=== PATIENT | female | born 1990 | race Caucasian/White ===

== ENCOUNTER 2024-07-26 12:33 | Outpatient (CLI) | payer OTHER, SELFPAY ==
--- NOTE | ~2024-07-26 | US_ITS ---
EXAMINATION: US OB /maternal detail DATE: 07/26/2024 13:20 INDICATION: anatomic survey. TECHNIQUE: Real-time ultrasound of the pelvis was performed. COMPARISON: None. FINDINGS: There is a single living fetus in breech presentation. The placenta is anterior, 8.1 cm from the cer vix. The cervical length is 3.9 cm on transabdominal images, which is normal. heart rate is 142 beats per minute (bpm). The amniotic fluid volume is subjectively normal. The following biometric data were obtained: Biparietal diameter (BPD): 4.3 cm; head circumference (HC): 16.1 cm; abdominal circumference (AC): 13 .6 cm; femur length (FL): 3.0 cm. These measurements are concordant. Estimated weight is 275 g +/- 41 g, which correlates with the 9th percentile when 12/13/24 is us ed as estimated date of delivery. As single measurements, these parameters are each equal to the following estimated gestational ages: BPD: 19 weeks 0 days. HC: 18 weeks 6 days. AC: 19 weeks 0 days. FL: 19 weeks 2 days. estimated gestational age based solely on measurements from this exam is 19 weeks 0 days +/- 1 weeks 2 days. The cerebral ventricles, cerebellum, cisterna magna, nuchal fold, lip, and spine are normal. The hear t is normal. The diaphragm, stomach, kidneys, and bladder are normal. There are two umbilical arterie s to yield a 3-vessel cord. The cord insertion is normal. IMPRESSION: 1. Single living fetus in breech presentation. 2. Small for gestational age. Estimated weight is 275 g +/- 41 g, which correlates with the 9t h percentile when 12/13/24 is used as estimated date of delivery. 3. Normal anatomic survey. Reviewed, dictated and finalized at location A. TIME IMPRESSION: 1. Single living fetus in breech presentation. 2. Small for gestational age. Estimated weight is 275 g +/- 41 g, which correlates with the 9th percentile when 12/13/24 is used as estimated date of livery. 3. Normal anatomic survey.
== END 2024-07-26 12:34 | disposition home or self-care (01) ==
PROVIDERS: PCP Obstetrics & Gynecology Gynecology; Visit Provider Obstetrics & Gynecology Gynecology
DX: Z36.9 Encounter for antenatal screening, unspecified (principal)
CPT/HCPCS: 76805

== ENCOUNTER 2024-12-11 11:10 | Inpatient (IN) | payer OTHER, SELFPAY ==
[2024-12-11] VITALS (64 sets, daily range): BP systolic 92–157; BP diastolic 34–104; PULSE 66–237; RESP 16; TEMP 36.2–37.1; O2SAT 75–100; BMI 30.2
[2024-12-11 09:50] LABS: Basophils Percent Auto 0.2 % (0.2-1.2); Eosinophils Absolute Auto 0.2 K/mm3 (0-0.3); Eosinophils Percent Auto 1.8 % (0-4.4); Hematocrit 39.7 % (37.0-47.0); Hemoglobin 12.5 g/dL (12.0-15.0); Immature Granulocyte Absolute 0.04 K/mm3 (0.00-0.031); Immature Granulocyte Percent A 0.5 % (0-0.5); Lymphocytes Percent Auto 25.1 % (18.3-44.2); Mean Corpuscular HGB Conc 31.5 g/dl (32-36); Mean Corpuscular Volume 88.8 fl (80-100); Monocytes Absolute Auto 0.8 K/mm3 (0.1-0.6); Neutrophils Absolute Auto 5.2 K/mm3 (1.3-6.7); Neutrophils Percent Auto 62.4 % (45.5-73.1); Platelet Count Result 336 k/mm3 (150-375); Red Blood Count 4.47 M/mm3 (4.2-5.4); Red Cell Distribution Width 12.3 % (11.5-14.5); White Blood Count 8.4 K/mm3 (4.5-10.0)
[2024-12-11 09:55] LABS: Add Urine Microscopic? YES; Appearance Urine Clear (Clear); Bacteria Urine Rare /hpf; Bilirubin Urine Negative (Negative); Blood Urine Negative (Negative); Color Urine Yellow (Yellow); Glucose Urine UA Negative (Negative); Ketones Urine Negative (Negative); Leukocyte Esterase Ur 2+ LEU/UL (Negative); Nitrate Urine Negative (Negative); Non Pathogenic Casts 0-2; Protein Urine Trace mg/dL (Negative); RBC Urine 0-2 /hpf (0-2); Specific Grav Ur 1.005 (1.001-1.035); Squamous Epithelial Cell Urine Moderate /hpf (Few); Urobilinogen Urine 0.2 mg/dL (<2.0); pH Urine 7.5 (5.0-9.0)
[2024-12-11 09:58] LABS: Alanine Aminotransferase 16 U/L (6-35); Alkaline Phosphatase 247 U/L (38-126); Anion Gap 9 mmol/L (4-12); Aspartate Amino Transferase 23 U/L (14-36); Bilirubin,Total 0.4 mg/dL (0.2-1.3); Blood Urea Nitrogen 7 mg/dL (7-17); Calcium 9.2 mg/dL (8.4-10.2); Carbon Dioxide 21 mmol/L (22-30); Chloride 104 mmol/L (98-107); Estimated Glomerular Filt Rate > 60; Glucose 87 mg/dL (65-110); Potassium 4.2 mmol/L (3.4-5.0); Sodium 134 mmol/L (137-145)
--- OUTSIDE RECORDS SUMMARY | 2024-12-11 10:02 | XMS_ITS | Encounter Summary ---
Author Organization [facility] Address Formerly [facility] [place] [address] Care Team Providers Care Estimation Manager Name Role Phone Tanvi Hopkins MD Primary Care Provider [phone] Encounter Details Date Type Department Care Team (Latest Contact Info) Description 12/19/2023 [employer] Message Enc [facility] - [address] [address] [address] [address] [place] [address] Tanvi Hopkins MD [address] [place] [address] [address] [place] [address] New Test Result email - 12/13/23 Social History Tobacco Use Types Packs/Day Years Used Date Smoking Tobacco: Never Smokeless Tobacco: Never Comments:Counseled by Dr. Allison stroud. Alcohol Use Standard Drinks/Week Comments Yes 0 (1 standard drink = 0.6 oz pur e alcohol) Socially PHQ-2 Answer Date Recorded Patient Health Questionnaire-2 Score 0 08/12/2023 Comments No Sex and Gender Information Value Date Recorded Sex Assigned at Not on file Legal Sex Female 7:05 PM CDT Gender Identity Not on file Sexual Orientation Not on file documented as of this encounter Plan of Treatment Not on file documented as of this encounter Visit Diagnoses Not on filedocumented in this encounter Additional Health Concerns Assessment Noted Time PHQ-9 Depression Total Score: 1 08/12/20 9:24 AM GUILLOTINE TRIMMER documented as of this encounter Care Teams Estimation Manager Relationship Specialty Start Date End Date Tanvi Hopkins MD [facility] [address] PCP - General INTERNAL MEDICINE 08/12/23 documented as of this encounter
--- OUTSIDE RECORDS SUMMARY | 2024-12-11 10:02 | XMS_ITS | Encounter Summary ---
Author Organization [facility] Address [address] [place] [address] Care Team Providers Care Inbound Customer Service Representative Name Role Phone Tanvi Hopkins MD Primary Care Provider [phone] Encounter Details Date Type Department Care Team (Late st Contact Info) Description 01/23/2019 Abstract [facility] [address] [place] [address] Corrine Pastor DO [address] [place] [address] Social History Tobacco Use Types Packs/Day Years Used Date Smoking Tobacco: Never Assessed Comments Unknown Sex and Gender Information Value Date Recorded Sex Assigned at Not on file Legal Sex Female 7:05 PM CDT Gender Identity Not on file Sexual Orientation Not on file documented as of this encounter Progress Notes * Corrine Pastor DO - 01/23/2019 4:20 PM CDT Please correct the error in network technology instructor is a 3 eosinophils percentage. This is probably from an allergy. Otherwise the health fair is benign. documented in this encounter Plan of Treatment Not on file documented as of this encounter Procedures Procedure Name Priority Date/Time Associated Diagnosis Comments HEALTH FAIR WITH LIPID Routine 11/03/2018 documented in this encounter Results * HEALTH FAIR WITH LIPID (11/03/2018) WBC 6.6 RBC 5.0 HGB 14.4 HCT 44.3 MCV 88.8 MCH 28.9 MCHC 32.5 RDW 12.3 PLT 410 ABS. NEUTROPHILS 2.41 ABS. LYMPHOCYTES 3.00 ABS. MONOCYTES 0.64 ABS. EOSINOPHILS 0.55 ABS. BASOPHILS 0.02 ABS. IMMATURE CELLS 0.01 NEUTROPHILS % *36.3 LYMPHOCYTES % 45.2 MONOCYTES % 9.7 EOSINOPHILS % *803 BASOPHILS % 0.3 IMMATURE GRANS % 0.20 GLUCOSE 80 mg/dL SODIUM S/P/B 141 POTASSIUM S/P/B 4.0 CHLORIDE S/P/B 103 CO2 29 BUN 8 CREATININE S/P/B 1.0 0.5 - 1.0 TOTAL PROTEIN S/P/B 8.2 CALCIUM S/P/B 9.2 ALBUMIN S/P/B 3.9 3.5 - 5.0 ALKALINE PHOSPHATASE S/P/B 61 AST 23 ALT 18 TSH 2.779 CHOLESTEROL 197 TRIGLYCERIDES 69 HDL *57 LDL (CALCULATED) 126 CHOL/HDL RISK FACTOR 3 11/03/2018 us Doc [facility] LABORATORY Edited Resul t - Final documented in this encounter Visit Diagnoses Not on filedocumented in this encounter Care Teams Inbound Customer Service Representative Relationship Specialty Start Date End Date Tanvi Hopkins MD [facility] [address] [place] [id number] PCP - General INTERNAL MEDICINE 08/12/23 documented as of this encounter
--- OUTSIDE RECORDS SUMMARY | 2024-12-11 10:02 | XMS_ITS | Clinical Summary ---
Author Organization [facility] Address [address] [place] [id number] Care Team Providers Care Quality Control Assistant Name Role Phone Corrine Pastor DO Primary Care Provider [phone] Allergies Active Allergy Reactions Criticality Noted Date Comments Other Swelling Medium 05/25/2018 Kiwi Medications sertraline (ZOLOFT) 50 mg tablet 12/12/2020 Active Active Problems Problem Noted Date Diagnosed Date Episodic tension-type headache, not intractable 12/26/2020 Assessment & Plan (12/26/2020 10:07 AM CDT): Patient has history of muscle contraction type headaches and was seen last at [facility] in 2017. She had a recurrence of similar headache based on historical characterization that responded initially to amitriptyline and seems to be continuing to respond along with anti anxiety benefit with substitution of amitriptyline with sertraline. At this time she cites having very little headache. When she does have a headache and does not require any treatment. She describes as a bandlike generalized head pressure without light or noise sensitivity nausea or vomiting. She has a normal neurological examination at present. Recommendations at this point I would continue the sertraline as prescribed by her PCP. I will see her back in the office on an as-needed basis. Surgical History Surgery Date Site/Laterality Comments ORAL SURGERY Medical History Medical History Date Comments Anxiety Headache Family History Medical History Relation Name Comments drug overdose Brother Kidney disease Father Irregular heart beat Mother Relation Name Status Comments Brother Father Alive Mother Alive Social History Tobacco Use Types Packs/Day Years Used Date Smoking Tobacco: Never Smokeless Tobacco: Never Personal Safety Answer Date Recorded Getting School Help Needed Not on file 11/19 Comments Unknown Sex and Gender Information Value Date Recorded Sex Assigned at Not on file Legal Sex Female 5:49 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 Gender Identity Not on file Sexual Orientation Not on file Obstetrics History Last Filed Vital Signs Vital Sign Reading Time Taken Comments Blood Pressure 118/64 12/26/2020 9:18 AM CDT Pulse 122 12/26/2020 9:18 AM CDT Temperature 37.8 C (100 F) 12/26/2020 9:18 AM CDT Respiratory Rate - - Oxygen Saturation - - Inhaled Oxygen Concentration - - Weight 56.2 kg (124 lb) 12/26/2020 9:18 AM CDT Height 162.6 cm (5' 4 ) 12/26/2020 9:18 AM CDT Body Mass Index 21.28 12/26/2020 9:18 AM CDT Plan of Treatment Not on file Insurance [facility] CHOICE PL[facility] Care Teams Quality Control Assistant Relationship Specialty Start Date End Date Corrine Pastor DO [facility] [place] [address] [place] [id number] PCP - General Sports Medicine 11/10/20
--- OUTSIDE RECORDS SUMMARY | 2024-12-11 10:02 | XMS_ITS | Clinical Summary ---
Author Organization [facility] Address [address] [place] [address] Care Team Providers Care Sales Training Representative Name Role Phone Tanvi Hopkins MD Primary Care Provider [phone] Allergies Active Allergy Reactions Criticality Noted Date Comments Kiwi Fruit Swelling 05/25/2018 Medications No known medications Active Problems Problem Noted Date Diagnosed Date Episodic tension-type headache, not intractable 12/26/2020 Overview (08/21/2021): Last Assessment & Plan: Patient has history of muscle contraction type headaches and was seen last at [facility] in 2017. She had a recurrence [...] in the office on an as-needed basis. Migraine 11/21/2020 ELIZABETH (generalized anxiety disorder) 11/21/2020 Family history of cardiovascular disorder 2020 Family history of anemia 11/21/2020 Family history of hypothyroidism 11/21/2020 Other migraine without status migrainosus, not i ntractable 03/20/2019 Closed fracture of foot 07/05/2011 Overview (03/17/2019): Note: nondisplaced fracture of the R proximal 5th metatarsal metaphyseal. Date Onset: 06/21/2011 Resolved Problems Problem Noted Date Diagnosed Date Resolved Date Tachycardia, unspecified 11/21/202009/2021 Annual physical exam 03/20/2019 021 Immunizations Name Administration Dates Next Due [id number] (Pediarix) 03/25/1992,03/06,01/14/1992, 992,1991,1991 Dtap (Generic) 05/02/2006,04/15/1997 Dtp 05/02/2006,04/15/1997 Dtp (Generic) 05/02/2006,04/15/1997 HPV GARDASIL 9-VALENT 03/06/2009,09/13/2008 Hepatitis A 05/02/2006 Hepatitis A (Generic) 05/02/2006,05/02/2006 Hepatitis B 05/14/1993, 3,11/08/1992, 993,10/06/1992,10/06/1992 Hepatitis B (Generic: Adult) 05/14/1993,11/08/18 93,10/06/1992 Hib 05/14/1993 Hib (Generic) 05/14/1993,05/14/1993 Influenza (Generic) 07/27/2023, 9,06/20/2019, 013 Influenza Adult (Generic) 07/07/2021,,05/23/2020, 020,06/20/2019,07/01/2016,07/01/2016, MMR (Generic) 04/15/1997,05/14/1993 MODERNA COVID-19 BIVALENT (1 2+), MRNA, LNP-S, PF 06/29/2022 Tdap (Boostrix) 08/12/2023 Varicella/MMR (Proquad) 04/15/1997,05/14/1993 Family History Medical History Relation Comments Diabetes Father Hypertension Father Hypertension Mother Relation Status Comments Father Mother Social History Tobacco Use Types Packs/Day Years Used Date Smoking Tobacco: Never Smokeless Tobacco: Never Tobacco Cessation:Counseling Given: Yes Comments:Counseled by Dr. Hopkins. Alcohol Use Standard Drinks/Week Comments Yes 0 (1 standard drink = 0.6 oz pur e alcohol) Socially PHQ-2 Answer Date Recorded Patient Health Questionnaire-2 Score 0 08/12/2023 Comments No Sex and Gender Information Value Date Recorded Sex Assigned at Not on file Legal Sex Female 7:05 PM CDT Gender Identity Not on file Sexual Orientation Not on file Last Filed Vital Signs Vital Sign Reading Time Taken Comments Blood Pressure 137/82 08/12/2023 7:58 AM SALES ENGINEER Pulse 74 08/12/2023 7:58 AM SALES ENGINEER Temperature 36.3 C (97.3 F) 08/12/2023 7:58 AM SALES ENGINEER Respiratory Rate 14 08/12/2023 7:58 AM SALES ENGINEER Oxygen Saturation 100% 08/12/2023 7:58 AM SALES ENGINEER Inhaled Oxygen Concentration - - Weight 61.1 kg (134 lb 12.8 oz) 08/12/2023 7:58 AM SALES ENGINEER Height 162.6 cm (5' 4 ) 08/12/2023 7:58 AM SALES ENGINEER Body Mass Index 23.14 08/12/2023 7:58 AM SALES ENGINEER Plan of Treatment Health Maintenance Due Date Last Done Comments HPV Vaccines (3 - 3-dose series) 05/29/2009 03/06/2009, 09/13/2008 Cervical Cancer Screening Pap with HPV Testing (Age 30 to 64) Every 5 Years 2021 03/20/2019 Cervical Cancer Screening Pap Smear (Age 30 to 64) Every 3 Years 11/25/2023 11/24/2020, 11/21/2020, 03/20/2019 Cervical Cancer Screening with HPV 11/25/2023 COVID-19 Vaccine ( season) 2024 06/29/2022, 08/12/2021, 01/02/2021, Additional history exists Annual Physical 08/12/2024 08/12/2023, 11/03, 03/20/2019 PHQ-2 (Physician [place]) 09/05/2024 08/12/2023 DTaP, Tdap and Td Vaccines (9 - Td or Tdap) 08/12/2033 08/12/2023, 05/02/2006, 05/02/2006, Additional history exists Hepatitis B Vaccines Completed 05/14/1993, 05/14/1993, 05/14/1993, Additional history exists Hepatitis C Completed 09/30/2023 Meningococcal B Vaccine Aged Out No l onger eligible based on patient's age to complete this topic Meningococcal Vaccine Aged Out No maurizio quincy eligible based on patient's age to complete this topic Pneumococcal Vaccine: Pediatrics (0 to 5 Years) and At-Risk Patients (6 to 64 Years) Aged Out No longer eligible based on patient's age to complete this topic RSV Immunizations Under 20 Months Aged Out No longer eligible based on patient's age to complete this topic Procedures Procedure Name Priority Date/Time Associated Diagnosis Comments HEPATITIS C ANTIBODY W/RFX TO HCV RNA Routine 09/30/2023 9:30 AM SALES ENGINEER OUTSIDE CYTOPATH CERV/VAG INTERPRET (PAP) (SCAN ORDER) 11/24/2020 HPV MRNA E6/E7 Routine 03/20/2019 4:20 PM CDT from Last 3 Months or Most Recently Relevant to Health Maintenance Results * HEPATITIS C ANTIBODY W/RFX TO HCV RNA (09/30/2023 9:30 AM SALES ENGINEER) HEPATITIS C AB NON-REACT MARLEE NON-REACT MARLEE [facility] Comment: HCV antibody was non-reactive. There is no laboratory evidence of HCV infection. In most cases, no further action is required. However, if recent HCV exposure is suspected, a test for HCV RNA (test code 40157) is suggested. For additional information please refer to http://education.Bill Me Later.Usermind/faq/BOW41h6 (This link is being provided for informational/ educational purposes only.) 09/30/2023 9:30 AM SALES ENGINEER 09/30/2023 9:32 AM SALES ENGINEER Narrative [facility] - 10/01/2023 7:26 AM SALES ENGINEER FASTING:YES PATIENT UNABLE TO VOID; ADVISED TO RETURN FOR COLLECTION. FASTING: YES Resulting Agency Comment Performing Organization Information: Site ID: [id number] Name: Alan Babcock Address: [address] [address] Director: Albertina Gunn MD Tanvi Hopkins MD LABORATORY Final Result [facility] [place] [address] [address] [address], [place] * PAP SMEAR (SCAN ORDER) (11/24/2020) 11/24/2020 [facility] Scanned SCANNING Final Resu lt * HPV MRNA E6/E7 (03/20/2019 4:20 PM CDT) HPV MRNA E6/E7 Not Detected NOT DETECTED 03/24/2019 11:18 AM CDT [facility] Comment: This test was performed using the APTIMA(R) HPV Assay ([employer] This assay detects E6/E7 viral messenger RNA (mRNA) from 14 high-risk HPV types (16,18,31,33,35,39,45,51, 52,56,58,59,66,68). For additional information please refer to: http://education.Revver/faq/MQC784n9 (This link is being provided for informational/ educational purposes only.) The analytical performance characteristics of this assay have been determined by [employer] [place], [place]. The modifications have not been cleared or approved by the FDA. This assay has been validated pursuant to the CLIA regulations and is used for clinical purposes. Test Performed by [facility], [employer] [place], [address] [place] [address] Orlando Oates M.D., Ph.D., Director of Laboratories , CLIA [id number] 03/20/2019 4:20 PM CDT Corrine Pastor DO PATHOLOGY/CYTOLOGY ORDERABLES Fi nal Result [facility] [address] [place] [address], [place] [phone] from Last 3 Months or Most Recently Relevant to Health Maintenance Insurance [employer] Care Teams Sales Training Representative Relationship Specialty Start Date End Date Tanvi Hopkins MD [address] [facility] [address] [place] [address] PCP - General INTERNAL MEDICINE 08/12/23
--- OUTSIDE RECORDS SUMMARY | 2024-12-11 10:02 | XMS_ITS | Clinical Summary ---
Author Organization [facility] Address [address] [facility] [place] [address] Care Team Providers Care Computer Recycling Worker Name Role Phone Corrine Pastor DO Primary Care Provider [phone] Source Comments [facility],non-owned Affiliates and Associated Physician Practices is amultiple site organization consisting of ambulatory clinics and hospital sitesin [place], [place], [place] and [place]. This disclosure is being madepursuant to the Care Everywhere program and may not contain all information available regarding this patient. Last updated 05/26/18.[facility] Allergies No known active allergies Medications Be aware that medications may not be up to date on this document. Always verify current medications with the patient. No known medications Immunizations Name Administration Dates Next Due INFLUENZA VACCINE, QUADR. (F LUZONE; FLULAVAL; FLUARIX; AFLURIA QUADRIVALENT; 6MO+), 0.5 ML (IIV4) 05/23/2020 Social History Tobacco Use Types Packs/Day Years Used Date Smoking Tobacco: Never Smokeless Tobacco: Never Sex and Gender Information Value Date Recorded Sex Assigned at Not on file Gender Identity Not on file Sexual Orientation Not on file Last Filed Vital Signs Vital Sign Reading Time Taken Comments Blood Pressure 118/70 05/23/2020 10:29 AM CDT Pulse 77 05/23/2020 10:29 AM CDT Temperature 36.9 C (98.5 F) 05/23/2020 10:29 AM CDT Respiratory Rate 17 05/23/2020 10:29 AM CDT Oxygen Saturation 100% 05/23/2020 10:29 AM CDT Inhaled Oxygen Concentration - - Weight 59 kg (130 lb) 05/23/2020 10:29 AM CDT Height 162.6 cm (5' 4 ) 05/23/2020 10:29 AM CDT Body Mass Index 22.31 05/23/2020 10:29 AM CDT Plan of Treatment Health Maintenance Due Date Last Done Comments PAP SMEAR 1991 HIV SCREENING 2006 HEPATITIS C SCREENING 09/03/2009 DTAP/TDAP/TD VACCINES (1 - Tdap) 2010 HEPATITIS B VACCINE (1 of 3 - 19+ 3-dose series) 2010 COVID-19 VACCINE (1 - 2023-2 5 season) 2024 INFLUENZA VACCINE (#1) 2024 0, 06/20/2019 DEPRESSION SCREENING 09/05/2024 ZOSTER VACCINE (1 of 2) 2041 HIB VACCINE Aged Out No longer eligi ble based on patient's age to complete this topic HPV VACCINE Aged Out No longer eligi ble based on patient's age to complete this topic MENINGOCOCCAL (Group B) VACCINE SHARED DECISION-MAKING Aged Out No longer eligible based on patient's age to complete this topic MENINGOCOCCAL GROUPS A/C/Y/W VACCINE Aged Out No longer eligible b ased on patient's age to complete this topic PNEUMOCOCCAL VACCINE Aged Out No long er eligible based on patient's age to complete this topic Care Teams Computer Recycling Worker Relationship Specialty Start Date End Date Corrine Pastor DO PCP - General Family Medicine 05/23/20
--- OUTSIDE RECORDS SUMMARY | 2024-12-11 10:02 | XMS_ITS | Referral Summary ---
Author Organization [facility] Address [address] [place] [phone] Care Team Providers Care Lab Animal Technician Name Role Phone Corrine Pastor DO Primary Care Provider [phone] Allergies Active Allergy Reactions Criticality Noted Date Comments Other Swelling Medium 05/25/2018 Kiwi Medications sertraline (ZOLOFT) 50 mg tablet 12/12/2020 Active Active Problems Problem Noted Date Diagnosed Date Episodic tension-type headache, not intractable 12/26/2020 Assessment & Plan (12/26/2020 10:07 AM CDT): Patient has history of muscle contraction type headaches and was seen last at [facility] in 2017. She had a recurrence [...] in the office on an as-needed basis. 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
--- OUTSIDE RECORDS SUMMARY | 2024-12-11 10:02 | XMS_ITS | Encounter Summary ---
Author Organization [facility] Address [address] [place] [address] Care Team Providers Care Toe Trimmer Name Role Phone Tanvi Hopkins MD Primary Care Provider [phone] Encounter Details Date Type Department Care Team (Late st Contact Info) Description 11/28/2020 [employer] Message Enc [facility] [address] [place] [id number] Corrine Pastor DO [address] [place] [address] RE: Follow Up/Update Social History Tobacco Use Types Packs/Day Years Used Date Smoking Tobacco: Never Smokeless Tobacco: Never Alcohol Use Standard Drinks/Week Comments Yes 0 (1 standard drink = 0.6 oz pur e alcohol) Socially PHQ-2 Answer Date Recorded PHQ-2 Score - If the patient scores above 3, please move on to questions 3-9 0 11/21/2020 Comments No Sex and Gender Information Value Date Recorded Sex Assigned at Not on file Legal Sex Female 7:05 PM CDT Gender Identity Not on file Sexual Orientation Not on file COVID-19 Exposure Response Date Recorded In the last month, have you been in contact with someone who was confirmed or suspected to have Coronavirus / COVID-19? No / Unsure 11/21/2020 10:09 AM CDT documented as of this encounter Progress Notes * Corrine Pastor DO - 12/01/2020 4:48 PM CDT If you want I can change it to Lexapro 10 mg. I am not certain what that side effect is from either. * Corrine Pastor DO - 11/28/2020 2:25 PM CDT Lets try through the weekend. Report on Tuesday. Stop if worse. * Corrine Pastor DO - 11/28/2020 12:45 PM CDT im not sure. Would you like to try another choice? I chose this one due to low doses and unknown chances documented in this encounter Plan of Treatment Not on file documented as of this encounter Visit Diagnoses Not on filedocumented in this encounter Care Teams Toe Trimmer Relationship Specialty Start Date End Date Tanvi Hopkins MD [facility] [address] [address] PCP - General INTERNAL MEDICINE 08/12/23 documented as of this encounter
--- OUTSIDE RECORDS SUMMARY | 2024-12-11 10:02 | XMS_ITS | Data Portability ---
Author Organization [facility] Address [address] [place] [address] Care Team Providers Care Cook Helper Preserves Name Role Phone TERRELLRONELJULIOANNIKAAlmaz Primary Care Provider Assessment Encounter Date Assessment Date Assessment LastModified by Organization Details LastModified Time 11/16/2024 11/16/2024 Patient is _36__weeks . Discussed plan. [email or web address] Not available 11/16/2024 11:56:08 11/23/2024 11/23/2024 Patient is _37__weeks . Discussed plan. Not available 11/23/2024 10:58:33 11/30/2024 11/30/2024 Patient is _38__weeks . Discussed plan. [email or web address] Not available 11/30/2024 10:09:02 12/07/2024 12/07/2024 Patient is __39_weeks . Discussed plan. [email or web address] Not available 12/07/2024 10:37:53 12/11/2024 12/11/2024 Patient is _39__weeks . Discussed plan. [email or web address] Not available 12/11/2024 10:04:11 Plan of Treatment Reminders Order Date Submit Date Provider Last Modified By Organization Details Last Modified Time Details Appointments OB ROUTINE 2024 08:30A M Haleigh Garland CNM Not available Not available Not available Lab None recorded . Referral None recorded . Procedures None recorded . Surgeries None recorded . Imaging None recorded . Medication Orders None recorded . Patient TargetsNo targets recorded. Patient InstructionsNo instructions recorded. Reason for Referral None Reported. Results Created Date Observation Date Name Description Value Unit Range Abnormal Flag Note LastModifiedBy Organization Detail LastModifiedTime 11/17/19 25 11/16/2024 CULTU RE: GROUP B STREP SCREE N, REFLE X SUSCE PTIBI LITY result report SEE RESULT S BELOW Test: Cultu re: Group B Strep , Refle x Susce ptibi lity ([facility]/ [facility] ) Speci men Sourc e: Vagin a/Rec joaquín Speci men Type: Vagin al/Re ctal Speci men Date: 2024 1436 Resul t Date: 2024 1445 Resul t Statu s: Final resul t Abnor mal: No Resul ting Lab: [facility] [address] [facility] [address] Tel: CULTU RE ----- ----- ----- --- No Group B strep isola nawaf at 2 days (angelica ctive broth enhan cemen t) Not Available [facility] (Lab) [address], [place], [address], 11/19/2024 15:49:07 11/02/19 25 11/02/2024 non-s tress test No observ ation record ed. [email or web address] [id number] , [place], [address], 11/02/2024 18:12:45 11/02/19 25 11/02/2024 non-s tress test No observ ation record ed. [email or web address] [address], [place], [address], 11/02/2024 18:17:24 Result Notes None recorded. Problems Name Problem SNOMED Code Status Onset Date Resolution Date Notes Provider Name and Address Organization Details Recorded Time 61103971 Active 2024 Marly Disla [facility], [facility] 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 5 11:33:54 Anxiety 61110932 Active given rx for lexapro and hydroxyzin e by nelson ZEPEDA, has not filled yet Haleigh Garland CNM [address], [place], [address], [facility] 5 11:33:05 Problem Notes None recorded. Procedures Surgical History Date Name Laterality Status Provider Name and Address Organization Details Recorded Time 4 Colposcopy completed Marly Disla [facility] 10/07/2024 14:16:22 4 Date of Last Pap Smear completed Marly Disla [facility] 10/07/2024 14:15:10 Imaging Results Imaging Date Name Status LastModified by Organiz ation Details LastModified Time 11/02/2024 non-stress test completed [place], [place], [address], 11/02/2024 18:12:45 11/02/2024 non-stress test completed [address] [place] [address], [place], [address], 11/02/2024 18:17:24 Procedure Notes None recorded. Medical Equipment None Reported. Allergies Allergen ID Allergen Name Allergen Category Reaction Reaction Severity Criticality Documentation Date Start Date Code Code System Note Provider Name and Address Organization Details Recorded Time 99282 kiwi fruit extract food Not available Not available Not available 09/20/2024 06706 01 RxNorm Marly roman, [facility] 5 10:07:59 Medications Name Sig Start Date Stop Date Status Note LastModified by Organization Details LastModified Time ergocalcifer ol (vitamin D2) 1,250 mcg (50,000 unit) capsule TAKE 1 CAPSULE BY MOUTH ONCE A WEEK 09/20 completed Not Available Not Available Not Available Vitals Date Recorded Body weight Body mass index (BMI) Body height Systolic blood pressure Diastolic blood pressure Provider Name and Address Organization Details Last Updated DateTime 11/16/2024 44926.88 764 g 29.5 kg/m2 162.56 cm 136 mm[Hg] 72 mm[Hg] Haleigh Garland, DUNAE [address], [place], [address], [facility] 10:32:04 Date Recorded Body height Body mass index (BMI) Body weight Systolic blood pressure Diastolic blood pressure Provider Name and Address Organization Details Last Updated DateTime 11/23/2024 162.56 cm 29.9 kg/m2 44955.07 g 135 mm[Hg] 83 mm[Hg] Marly Disla [facility] 10:14:25 Date Recorded Body height Body mass index (BMI) Body weight Systolic blood pressure Diastolic blood pressure Provider Name and Address Organization Details Last Updated DateTime 11/30/2024 162.56 cm 30.6 kg/m2 85450.44 g 138 mm[Hg] 86 mm[Hg] Marly Disla [facility] 10:08:22 Date Recorded Body height Body mass index (BMI) Body weight Systolic blood pressure Diastolic blood pressure Provider Name and Address Organization Details Last Updated DateTime 12/07/2024 162.56 cm 30.6 kg/m2 88977.44 g 138 mm[Hg] 86 mm[Hg] Marly Disla [facility] 10:12:25 Date Recorded Body height Body mass index (BMI) Body weight Systolic blood pressure Diastolic blood pressure Provider Name and Address Organization Details Last Updated DateTime 12/11/2024 162.56 cm 30 kg/m2 29503.66 g 159 mm[Hg] 94 mm[Hg] Marly Disla [facility] 09:45:50 Social History Question Answer Notes LastModified by Organizat ion Details LastModified Time Tobacco Smoking Status Never Smoker Marly Disla [facility], [facility] 09/20/2024 10:18:50 Do You Have An Advance Directive? No [email or web address] Information n ot available 10/05/2024 What Is Your Level Of Alcohol Consumption? None [email or web address] Information not available 09/20/2024 If You Are , What Was Your Level Of Alcohol Consumption Prior To ? Occasional Information not available 09/20/2024 Are You Blind Or Do You Have Difficulty Seeing? No [email or web address] Information n ot available 09/20/2024 What Is Your Level Of Caffeine Consumption? Moderate [email or web address] Information not available 09/20/2024 How Much Tobacco Do You Chew? None [email or web address] Information not available 10/05/2024 In The 14 Days Before Symptom Onset, Have You Had Close Contact With A Laboratory-confirm ed COVID-19 While That Case Was Ill? No [email or web address] Information n ot available 09/20/2024 In The 14 Days Before Symptom Onset, Have You Had Close Contact With A Person Who Is Under Investigation For COVID-19 While That Person Was Ill? No [email or web address] Information not available 09/20/2024 Have You Been To An Area Known To Be High Risk For COVID-19? No [email or web address] Information not available 09/20/2024 Are You Deaf Or Do You Have Serious Difficulty Hearing? No [email or web address] Information not available 09/20/2024 What Type Of Diet Are You Following? REGULAR [email or web address] Information n ot available 09/20/2024 What Is The Highest Grade Or Level Of School You Have Completed Or The Highest Degree You Have Received? WL24251-0 [email or web address] Information not available 10/05/2024 What Is Your Occupation? Development [email or web address] Information not available 10/05/2024 Do You Use Protection During Sex? No [email or web address] Information not available 10/05/2024 Do You Use Your Seat Belt Or Car Seat Routinely? Yes [email or web address] Information not available 09/20/2024 Do You Have Smoke And Carbon Monoxide Detectors In Your Home? Yes [email or web address] Information not available 09/20/2024 How Much Tobacco Do You Smoke? No [email or web address] Information not available 10/05/2024 Do You Feel Stressed (tense, Restless, Nervous, Or Anxious, Or Unable To Sleep At Night)? CD76164-1 Information not available 09/20/2024 Do You Use Any Illicit Or Recreational Drugs? No [email or web address] Information not available 09/20/2024 Do You Use Sunscreen Routinely? Yes [email or web address] Information not available 09/20/2024 Has Tobacco Cessation Counseling Been Provided? No [email or web address] Information not available 09/20/2024 Have You Used IV Drugs? No Information not available 10/05/2024 Do You Or Have You Ever Used Any Other Forms Of Tobacco Or Nicotine? No [email or web address] Information not available 09/20/2024 Sex: Unknown Functional Status Question Answer Note LastModified by Organizat ion Details LastModified Time Do you have difficulty walking or climbing stairs? No [email or web address] Information not available 09/20/2024 Are you able to walk? YESWOREST [email or web address] Information not available 09/20/2024 Are you able to care for yourself? Yes [email or web address] Information not available 09/20/2024 Do you have difficulty dressing or bathing? No [email or web address] Information not available 09/20/2024 What is your exercise level? Moderate [email or web address] Information not available 09/20/2024 Mental Status None recorded. Family History Relationship Description Onset Age of this Age Resolved Age Notes LastModified by Organization Details LastModified Time Father Diabetes mellitus [email or web address] Not available 09/20 09:26:30 Father Coronary arterioscler osis [email or web address] Not available 2024 10:29:26 Father Anemia Not available 10/07/2024 14:09:42 Father Heart disease [email or web address] Not available 10/07 14:09:56 Mother Diabetes mellitus [email or web address] Not available 09/20 09:26:30 Mother Coronary arterioscler osis Not available 2024 10:29:26 Mother Hypertensive disorder [email or web address] Not available 01/16 /2025 09:26:55 Mother Anemia [email or web address] Not available 10/07/2024 14:09:42 Medical History Condition Response Allergies (Food, seasonal, environmental ) N Other N Breast Cancer N Drug/Latex Allergies/Reactions N Blood Transfusion N Dermatologic Disorders N Lung Disease N Defects or Inherited Disease N Breast Problem N Gestational Diabetes N Hematologic disorders N Anesthesia Complications N History of STI N Deep Vein Thrombosis N Polycystic ovary syndrome N Anxiety Disorder Y Autoimmune disease N Arthritis N Infertility N Polyps N Acid Reflux (GERD) N History of abnormal pap N Cancer N Stroke N Varicosities N Neurologic/Epilepsy N Endometriosis N High Cholesterol N Headaches N Fibromyalgia N Kidney Disease N Heart Problems N Kidney or Bladder Problems N Thyroid Problems N GI Problems N Eating Disorder N Anemia N Art (IVF or FET) N Psychiatric Illness N Ovarian Cancer N Diabetes N Pulmonary (TB, Asthma) N Hepatitis/Liver Disease N No Past Medical History N Eczema N Urinary Tract Infection N Abuse/Domestic Violence N Asthma N Trauma/Violence N Depression/ depression N Heart Disease N Pre-Eclampsia N Hypertension N Osteoporosis N Thrombophilias N Gynecological History Statement/Question Response Date of Last Colonoscopy Date of Last Mammogram Date of LMP 03/08/2024 Date of DEXA bone scan Colposcopy Date of Last Pap Smear 11/30/2023 Current Control Method LMP Definite Obstetrics History GPAL:G 1 P 0 0 0 0 Type Value Living 0 Total 1 Past Encounters Encounter ID Performer Location Encounter Start Date Encounter Closed Date Diagnosis/Indication Diagnosis SNOMED-CT Code Diagnosis ICD10 Code Diagnosis Note [id number] Marly Disla [facility] [address],[facility] [place] [address] 09/20/2024 09:18:07 09/20/2024 11:51:20 Gestation period, 28 weeks 00835048 Z3A.28 Venereal d isease screening 703996853 Z11.3 Routine an tenatal care 401832289 Z34.93 [id number] Haleigh Garland [facility] [address],[facility] [place] [address] 10/05/2024 10:29:05 10/05/2024 12:54:36 Gestation period, 30 weeks 68177761 Z3A.30 [id number] [facility] [address],[place] [address] 10/19/2024 09:55:43 10/19/2024 10:43:26 Gestation period, 32 weeks 3857695 Z3A.32 [id number] Haleigh Garland [facility] [address],[place] [address] 11/02/2024 09:58:39 11/02/2024 10:53:24 Gestation period, 34 weeks 49600415 Z3A.34 [id number] Marly Nighat [facility] [address],[place] [address] 11/02/2024 18:09:57 11/05/2024 01:39:31 tachycardia 738952071 O36.8399 [id number] Haleigh Garland [facility] [address],[place] [address] 11/16/2024 10:02:54 11/16/2024 11:57:35 Gestation period, 36 weeks 81495600 Z3A.36 [id number] [facility] [address],[place] [address] 11/23/2024 10:06:05 11/23/2024 11:03:06 Gestation period, 37 weeks 78168537 Z3A.37 [id number] [facility] [address],[place] [address] 11/30/2024 10:01:14 11/30/2024 10:24:08 Gestation period, 38 weeks 35259063 Z3A.38 [id number] [facility] [address],[place] [address] 12/07/2024 10:03:56 12/07/2024 10:46:51 Gestation period, 39 weeks 74251264 Z3A.39 [id number] [facility] [address],[place] [address] 12/11/2024 09:36:39 12/11/2024 10:27:31 Gestation period, 39 weeks 83093272 Z3A.39 Health Concerns Section Related Observation LastModified by Organization Detai ls LastModified Time None Recorded Concern Status LastModified by Organization Details LastModified Time None Recorded Advance Directives Directive N: Payers Encounter Date Sequence Insurance Name Policy Number Policy Danielle Covered Member ID Danielle Member ID Guarantor Name 11/16/2024 1 [employer] (POS) [id number] Jennifer Koehl [id number] 19 Jennifer Koehl 11/23/2024 1 [employer] (POS) [id number] Jennifer Koehl [id number] 19 Jennifer Koehl 11/30/2024 1 [employer] (POS) [id number] Jennifer Koehl [id number] 19 Jennifer Koehl 12/07/2024 1 [employer] (POS) [id number] Jennifer Koehl [id number] 19 Jennifer Koehl 12/11/2024 1 [employer] (POS) [id number] Jennifer Koehl [id number] 19 Jennifer Koehl OBGyn Episode Ob Episode Information Episode Created Date Number of Fetuses Patient Bloodtype Patient rh Status Prepregnancy Weight lbs Domestic Partner Domestic Partner Phone Father Name Newspaper Peddler Status 09/20/19 25 1 B Positive 127 ratna allen OPEN Fetus Data First Name Last Name Admitted to NICU Weight (g) Sex Living Outcome Pediatric Complications Fetus ID Race Codes Race Delivery Type [id number] Problems Problem Notes ok to do to gCT with juice, discussed not as diagnostic as glucola, pt to bring it in, declines h/h, hivprefers low intervention, wants to keep placenta Problem Name Start Date End Date Resolution Snomed Code Not e Anxiety 44115982 given rx f or lexapro and hydroxyzine by nelson ZEPDEA, has not filled yet growth restriction 37220808 has f/u chet jensen, us offered here sooner6% efw Be Calculation Initial Be Date Initial Exam Date Initial Exam Provider Initial Ultrasound Date Last Menstrual Period Date Ultra Sound Weeks Gestation 12/13/2024 05/31/2024 05/31/202403/08/2024 12 Eighteen To Twenty Week Be Update Ultra Sound Date Fundal Height At Umbil Quickening Date Ultra Sound Latest Weeks Gestation Final Be Confirmed By Final Be Confirmed Date Final Be Date Ultra Sound Latest Days Gestation 07/26/20 24 19 [email or web address] 09/20/2024 12/14/19 25 0 Pre-chacho Flowsheet Flowsheet Date 09/20/2024 Raza Score Blood Edema Fundus Height Fundus Units Glucose Ketones Leukocytes Nitrite Labor Signs Protein Cervic Dilation Cervic Effacement Cervic Station neg none 24 cm none trace Type Weight in lbs Pre/Post Dialysis Refused Weight 157.928747151633 BP Diastolic BP Location Tested BP Systolic BP Type 77 133 Fetus Heart Rate Present A 160 Present Fetus Movement A Yes Comments reviewed pt history, IUGR, h asnt seen [facility] in awhile, does have f/u, declines hiv and other labs for now, pt to do gct, discussed anxiety in , risks and benefits of lexapro and hydroxyzine, pt unsure if she wants to fill. prefers low intervention Flowsheet Date 10/05/2024 Raza Score Blood Edema Fundus Height Fundus Units Glucose Ketones Leukocytes Nitrite Labor Signs Protein Cervic Dilation Cervic Effacement Cervic Station none Type Weight in lbs Pre/Post Dialysis Refused 161.666956935360 BP Diastolic BP Location Tested BP Systolic BP Type 73 130 Fetus Heart Rate Present Fetus Movement A Yes Comments Patient is having some disch arge. 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 has appt at [facility] today for us, reviewed kick counts f/u 2 weeks Flowsheet Date 10/19/2024 Raza Score Blood Edema Fundus Height Fundus Units Glucose Ketones Leukocytes Nitrite Labor Signs Protein Cervic Dilation Cervic Effacement Cervic Station neg none Type Weight in lbs Pre/Post Dialysis Refused 163.127747355534 BP Diastolic BP Location Tested BP Systolic BP Type 75 137 Fetus Heart Rate Present Fetus Movement A Yes Comments Patient is having groin pain and discharge. discussed 36 week US, pt to consider, is checking with insurance, +FM sleeping ok, ice to groin avoid lifting, precautions and education f/u 2 weeks call for preadmission, discussed classes Flowsheet Date 11/02/2024 Raza Score Blood Edema Fundus Height Fundus Units Glucose Ketones Leukocytes Nitrite Labor Signs Protein Cervic Dilation Cervic Effacement Cervic Station neg none 33 cm Type Weight in lbs Pre/Post Dialysis Refused 167.208878438479 BP Diastolic BP Location Tested BP Systolic BP Type 82 135 Fetus Heart Rate Present A 168 Present Fetus Movement A Yes Comments Pstient states that is havin g some discharge. will reviewed evidence based , discussed gbs plan culture next visit, +FM, precautions and education f/u 2 weeks Flowsheet Date 11/02/2024 Raza Score Blood Edema Fundus Height Fundus Units Glucose Ketones Leukocytes Nitrite Labor Signs Protein Cervic Dilation Cervic Effacement Cervic Station Type Weight in lbs Pre/Post Dialysis Refused Weight 167.770314672334 BP Diastolic BP Location Tested BP Systolic BP Type 82 135 Fetus Heart Rate Present Fetus Movement Comments Flowsheet Date 11/16/2024 Raza Score Blood Edema Fundus Height Fundus Units Glucose Ketones Leukocytes Nitrite Labor Signs Protein Cervic Dilation Cervic Effacement Cervic Station none Type Weight in lbs Pre/Post Dialysis Refused 172.504445329645 BP Diastolic BP Location Tested BP Systolic BP Type 72 136 Fetus Heart Rate Present Fetus Movement A Yes Comments patient is having cramping a nd discharge and swelling. +FM, doing well, precautions and education, gbs collected f/u one week Flowsheet Date 11/23/2024 Raza Score Blood Edema Fundus Height Fundus Units Glucose Ketones Leukocytes Nitrite Labor Signs Protein Cervic Dilation Cervic Effacement Cervic Station trace 36 cm Type Weight in lbs Pre/Post Dialysis Refused Weight 174.128548922098 BP Diastolic BP Location Tested BP Systolic BP Type 83 135 Fetus Heart Rate Present A 145 Present Fetus Movement A Yes Comments +FM, doing well, no complain ts, education and precautions, preadmission complete f/u one week Flowsheet Date 11/30/2024 Raza Score Blood Edema Fundus Height Fundus Units Glucose Ketones Leukocytes Nitrite Labor Signs Protein Cervic Dilation Cervic Effacement Cervic Station neg trace Type Weight in lbs Pre/Post Dialysis Refused Weight 178.298042348692 BP Diastolic BP Location Tested BP Systolic BP Type 86 138 Fetus Heart Rate Present A 158 Present Fetus Movement A Yes Comments Patient is having discharge and swelling. +FM doing well, precautions and education, declines cervical exam, f/u one week Flowsheet Date 12/07/2024 Raza Score Blood Edema Fundus Height Fundus Units Glucose Ketones Leukocytes Nitrite Labor Signs Protein Cervic Dilation Cervic Effacement Cervic Station neg trace Type Weight in lbs Pre/Post Dialysis Refused Weight 178.300472752790 BP Diastolic BP Location Tested BP Systolic BP Type 86 138 Fetus Heart Rate Present Fetus Movement A Yes Comments Patient is having discharge and swelling. declines elective IOL, +FM precautions and education f/u one week Flowsheet Date 12/11/2024 Raza Score Blood Edema Fundus Height Fundus Units Glucose Ketones Leukocytes Nitrite Labor Signs Protein Cervic Dilation Cervic Effacement Cervic Station neg trace Type Weight in lbs Pre/Post Dialysis Refused Weight 175.076645680347 BP Diastolic BP Location Tested BP Systolic BP Type 94 159 Fetus Heart Rate Present Fetus Movement A Yes Comments Patient is having some disch arge and swelling. Patient is having alot of stress and anxiety. pt father is at the end of life, +FM, denies headache visual changes, epigastric pain, to ld for labs Menstrual History Last Menstrual Date Menses Monthly On Bcp Conception Prior Menses Frequency Hcg Plus Date Menarche Onset Age 0703/08/2023 Delivery Information Delivery Date Delivery Type Labor Anesthesia Weeks Gestation Incision Type Labor Labor Length Hrs Delivered By Post Complications Tubal Sterilization Discharge Date Comments Discharge Information Feeding Method Contraceptive Method Maternal HG B and HCT Levels
--- OUTSIDE RECORDS SUMMARY | 2024-12-11 10:03 | XMS_ITS | Continuity of Care Document ---
Author Organization [facility] Address [address] [place] [address] Care Team Providers Care Mobile Health Vehicle Operator Name Role Phone DIANDRA BLEVINS Primary Care Provider [phone] Assessment Encounter Date Assessment Date Assessment LastModified by Organization Details LastModified Time 12/11/2024 12/11/2024 Patient is _39__weeks . Discussed plan. Not available 12/11/2024 10:04:11 Plan of Treatment [...] Abnormal Flag Note LastModifiedBy Organization Detail LastModifiedTime 11/02/1911/02/2024 non-s tress test No observ ation record ed. [email or web address] [place] [address], [place], [address], 11/02/2024 18:12:45 11/02/1911/02/2024 non-s tress test No observ ation record ed. [email or web address] [place] [address], [place], [address], 11/02/2024 18:17:24 Result Notes None recorded. Problems Name Problem SNOMED Code Status Onset Date Resolution Date Notes Provider Name and Address Organization Details Recorded Time 43963740 [facility] 10:[facility]32 growth restricti on 17067854 Active has f/u [facility], offered here sooner 6% efw Haleigh Garland CNM [address], [place], [address], [facility] 5 11:33:54 Anxiety 58845106 Active given rx for lexapro and hydroxyzin e by nelson ZEPEDA, has not filled yet Haleigh Garland CNM [address], [place], [address], [facility] 5 11:33:05 Problem Notes None recorded. Procedures Surgical History Date Name Laterality Status Provider Name and Address Organization Details Recorded Time 4 Colposcopy completed Marly Disla [facility] 10/07/2024 14:16:22 4 Date of Last Pap Smear completed Marly Disla [facility] 10/07/2024 14:15:10 Imaging Results None recorded. Procedure Notes None recorded. Medical Equipment None Reported. Allergies Allergen ID Allergen Name Allergen Category Reaction Reaction Severity Criticality Documentation Date Start Date Code Code System Note Provider Name and Address Organization Details Recorded Time 34943 kiwi fruit extract food Not available Not available Not available 09/20/2024 74837 01 RxNorm Marly roman, [facility] 5 10:07:59 Medications Name Sig Start Date Stop Date Status Note LastModified by Organization Details LastModified Time ergocalcifer ol (vitamin D2) 1,250 mcg (50,000 unit) capsule TAKE 1 CAPSULE BY MOUTH ONCE A WEEK 09/20 completed Not Available Not Available Not Available Vitals Date Recorded Body height Body mass index (BMI) Body weight Systolic blood pressure Diastolic blood pressure Provider Name and Address Organization Details Last Updated DateTime 12/11/2024 162.56 cm 30 kg/m2 57523.66 g 159 mm[Hg] 94 mm[Hg] Marly Disla [facility] 09:45:50 Social History Question Answer Notes LastModified by Organizat ion Details LastModified Time Tobacco Smoking Status Never Smoker Marly Disla null, [facility] 09/20/2024 10:18:50 Do You Have An Advance Directive? No Information n ot available 10/05/2024 What Is Your Level Of Alcohol Consumption? None [email or web address] Information not available 09/20/2024 If You Are , What Was Your Level Of Alcohol Consumption Prior To ? Occasional [email or web address] Information not available 09/20/2024 Are You Blind Or Do You Have Difficulty Seeing? No Information n ot available 09/20/2024 What Is Your Level Of Caffeine Consumption? Moderate [email or web address] Information not available 09/20/2024 How Much Tobacco Do You Chew? None [email or web address] Information not available 10/05/2024 In The 14 Days Before Symptom Onset, Have You Had Close Contact With A Laboratory-confirm ed COVID-19 While That Case Was Ill? No [email or web address] Information n ot available 09/20/2024 In The 14 Days Before Symptom Onset, Have You Had Close Contact With A Person Who Is Under Investigation For COVID-19 While That Person Was Ill? No [email or web address] Information not available 09/20/2024 Have You Been To An Area Known To Be High Risk For COVID-19? No [email or web address] Information not available 09/20/2024 Are You Deaf Or Do You Have Serious Difficulty Hearing? No [email or web address] Information not available 09/20/2024 What Type Of Diet Are You Following? REGULAR [email or web address] Information n ot available 09/20/2024 What Is The Highest Grade Or Level Of School You Have Completed Or The Highest Degree You Have Received? 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 No [email or web address] Information not available 10/05/2024 Do You Use Your Seat Belt Or Car Seat Routinely? Yes [email or web address] Information not available 09/20/2024 Do You Have Smoke And Carbon Monoxide Detectors In Your Home? Yes [email or web address] Information not available 09/20/2024 How Much Tobacco Do You Smoke? No [email or web address] Information not available 10/05/2024 Do You Feel Stressed (tense, Restless, Nervous, Or Anxious, Or Unable To Sleep At Night)? [id number] [email or web address] Information not available 09/20/2024 Do You Use Any Illicit Or Recreational Drugs? No [email or web address] Information not available 09/20/2024 Do You Use Sunscreen Routinely? Yes [email or web address] Information not available 09/20/2024 Has Tobacco Cessation Counseling Been Provided? No [email or web address] Information not available 09/20/2024 Have You Used IV Drugs? No Information not available 10/05/2024 Do You Or Have You Ever Used Any Other Forms Of Tobacco Or Nicotine? No [email or web address] Information not available 09/20/2024 Sex: Unknown Functional Status Question Answer Note LastModified by Organizat ion Details LastModified Time Do you have difficulty walking or climbing stairs? No [email or web address] Information not available 09/20/2024 Are you able to walk? YESWOREST [email or web address] Information not available 09/20/2024 Are you able to care for yourself? Yes [email or web address] Information not available 09/20/2024 Do you have difficulty dressing or bathing? No [email or web address] Information not available 09/20/2024 What is your exercise level? Moderate Information not available 09/20/2024 Mental Status None recorded. Family History Relationship Description Onset Age of this Age Resolved Age Notes LastModified by Organization Details LastModified Time Father Diabetes mellitus [email or web address] Not available 09/20 09:26:30 Father Coronary arterioscler osis [email or web address] Not available 2024 10:29:26 Father Anemia [email or web address] Not available 10/07/2024 14:09:42 Father Heart disease [email or web address] Not available 10/07 14:09:56 Mother Diabetes mellitus [email or web address] Not available 09/20 09:26:30 Mother Coronary arterioscler osis [email or web address] Not available 2024 10:29:26 Mother Hypertensive disorder [email or web address] Not available 09/20 09:26:55 Mother Anemia [email or web address] Not available 10/07/2024 14:09:42 Medical History Condition [...] SNOMED-CT Code Diagnosis ICD10 Code Diagnosis Note [id number] Haleigh Garland CNM [place] [address],[facility] [place] [address] 11/16/2024 10:02:54 11/16/2024 11:57:35 Gestation period, 36 weeks 39037279 Z3A.36 [id number] Haleigh Garland CNM [place] [address] [address] 11/23/2024 10:06:05 11/23/2024 11:03:06 Gestation period, 37 weeks 50954856 Z3A.37 [id number] Haleigh Garland CNM [place] [address],[place] [address] 11/30/2024 10:01:14 11/30/2024 10:24:08 Gestation period, 38 weeks 32142152 Z3A.38 [id number] Haleigh Garland CNM [place] [address],[place] [address] 12/07/2024 10:03:56 12/07/2024 10:46:51 Gestation period, 39 weeks 92355798 Z3A.39 [id number] Haleigh Garland CNM [place] [address],[place] [address] 12/11/2024 09:36:39 12/11/2024 10:27:31 Gestation period, 39 weeks 56003541 Z3A.39 Health Concerns Section Related Observation LastModified by Organization Detai ls LastModified Time None Recorded Concern Status LastModified by Organization Details LastModified Time None Recorded Payers Encounter Date Sequence Insurance Name Policy Number Policy Danielle Covered Member ID Danielle Member ID Guarantor Name 12/11/2024 1 [employer] (POS) [id number] Jennifer Croft [id number] Jennifer Croft OBGyn Episode Ob Episode Information Episode Created Date Number of Fetuses Patient Bloodtype Patient rh Status Prepregnancy Weight lbs Domestic Partner Domestic Partner Phone Father Name Narrow Fabric Calenderer Status 09/20/19 25 1 B Positive 127 ratna allen OPEN Fetus Data First Name Last Name Admitted to NICU Weight (g) Sex Living Outcome Pediatric Complications Fetus ID Race Codes Race Delivery Type [id number] Problems Problem Notes ok to do to gCT with juice, discussed not as diagnostic as glucola, pt to bring it in, declines h/h, hivprefers low intervention, wants to keep placenta Problem Name Start Date End Date Resolution Snomed Code Not e Anxiety [id number] given rx f or lexapro and hydroxyzine by nelson ZEPEDA, has not filled yet growth restriction 51755412 [facility]6% efw Be Calculation Initial Be Date Initial Exam Date Initial Exam Provider Initial Ultrasound Date Last Menstrual Period Date Ultra Sound Weeks Gestation 12/13/2024 05/31/2024 05/31/2024 03/08/2024 12 Eighteen To Twenty Week Be Update Ultra Sound Date Fundal Height At Umbil Quickening Date Ultra Sound Latest Weeks Gestation Final Be Confirmed By Final Be Confirmed Date Final Be Date Ultra Sound Latest Days Gestation 07/26/20 24 19 [email or web address] 09/20/2024 12/14/19 25 0 Pre- Flowsheet Flowsheet Date 09/20/2024 Raza Score Blood Edema Fundus Height Fundus Units Glucose Ketones Leukocytes Nitrite Labor Signs Protein Cervic Dilation Cervic Effacement Cervic Station neg none 24 cm none trace Type Weight in lbs Pre/Post Dialysis Refused Weight 157.947604832178 BP Diastolic BP Location Tested BP Systolic BP Type 77 133 Fetus Heart Rate Present A 160 Present Fetus Movement A Yes Comments reviewed pt history, IUGR, h asnt seen chet in awhile, does have f/u, declines hiv [...] Type Weight in lbs Pre/Post Dialysis Refused 161.990205839267 BP Diastolic BP Location Tested BP Systolic BP Type 73 130 Fetus Heart Rate Present Fetus Movement A Yes Comments Patient is having some disch arge. 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 has appt at [facility] today for us, reviewed kick counts f/u 2 weeks Flowsheet Date 10/19/2024 Raza Score Blood Edema Fundus Height Fundus Units Glucose Ketones Leukocytes Nitrite Labor Signs Protein Cervic Dilation Cervic Effacement Cervic Station neg none Type Weight in lbs Pre/Post Dialysis Refused 163.974345311264 BP Diastolic BP Location Tested BP Systolic BP Type 75 137 Fetus Heart Rate Present Fetus Movement A Yes Comments Patient is having groin pain and discharge. discussed 36 week US, pt to consider, is checking with insurance, +FM sleeping ok, ice to groin avoid lifting, precautions and education f/u 2 weeks call for preadmission, discussed classes Flowsheet Date 11/02/2024 Rzaa Score Blood Edema Fundus Height Fundus Units Glucose Ketones Leukocytes Nitrite Labor Signs Protein Cervic Dilation Cervic Effacement Cervic Station neg none 33 cm Type Weight in lbs Pre/Post Dialysis Refused 167.778687941912 BP Diastolic BP Location Tested BP Systolic [...] Weight in lbs Pre/Post Dialysis Refused Weight 167.523673960674 BP Diastolic BP Location Tested BP Systolic BP Type 82 135 Fetus Heart Rate Present Fetus Movement Comments Flowsheet Date 11/16/2024 Raza Score Blood Edema Fundus Height Fundus Units Glucose Ketones Leukocytes Nitrite Labor Signs Protein Cervic Dilation Cervic Effacement Cervic Station none Type Weight in lbs Pre/Post Dialysis Refused 172.110875926646 BP Diastolic BP Location Tested BP Systolic [...] Weight in lbs Pre/Post Dialysis Refused Weight 174.028124049318 BP Diastolic BP Location Tested BP Systolic [...] Weight in lbs Pre/Post Dialysis Refused Weight 178.030745296255 BP Diastolic BP Location Tested BP Systolic [...] Weight in lbs Pre/Post Dialysis Refused Weight 178.798819246087 BP Diastolic BP Location Tested BP Systolic [...] Weight in lbs Pre/Post Dialysis Refused Weight 175.745808381784 BP Diastolic BP Location Tested BP Systolic [...]
--- OUTSIDE RECORDS SUMMARY | 2024-12-11 10:03 | XMS_ITS | Clinical Summary ---
Author Organization [facility] Address [address] [place] [address] Phone Care Team Providers Care Manager Science Name Role Phone Unavailable Primary Care Provider Unavailabl e Active Problems Problem Noted Date Diagnosed Date growth restriction antepartum 08/22/2024 Estimated Date of Delivery Comme nts Yes 12/23/2024 Encounters Date Type Department Care Team Description 11/21/2024 External Device Data STL ABSTRACTION Provider, Abstract 11/21/2024 External Device Data [facility] ABSTRACTION Provider, Abstract 11/10/2024 External Device Data [facility] ABSTRACTION Provider, Abstract 11/10/2024 External Device Data [facility] ABSTRACTION Provider, Abstract 11/07/2024 External Device Data [facility] ABSTRACTION Provider, Abstract 10/24/2024 External Device Data [facility] ABSTRACTION Provider, Abstract 10/05/2024 3:30 PM CASH CHECKER - 10/05/2024 11:59 PM CASH CHECKER Hospital Encounter [facility] Ground Floor [address] [phone] Willy Esquivel MD Discharge Disposition: Home or Self Care 10/03/2024 External Device Data STL ABSTRACTION Provider, Abstract 09/27/2024 External Device Data [facility] ABSTRACTION Provider, Abstract from Last 3 Months Social History Tobacco Use Types Packs/Day Years Used Date Smoking Tobacco: Never Assessed Estimated Date of Delivery Comme nts Yes 12/23/2024 Sex and Gender Information Value Date Recorded Sex Assigned at Not on file Legal Sex Female 7:41 AM CASH CHECKER Gender Identity Not on file Sexual Orientation Not on file Last Filed Vital Signs Vital Sign Reading Time Taken Comments Blood Pressure 131/54 08/22/2024 11:07 AM CASH CHECKER BP M: 73 Pulse - - Temperature - - Respiratory Rate - - Oxygen Saturation - - Inhaled Oxygen Concentration - - Weight 66.7 kg (147 lb) 08/22/2024 11:07 AM CASH CHECKER Height 162.6 cm (5' 4 ) 08/22/2024 11:07 AM CASH CHECKER Body Mass Index 25.23 08/22/2024 11:07 AM CASH CHECKER Plan of Treatment Health Maintenance Due Date Last Done Comments HPV VACCINES (3 - 3-dose series) 05/29/2009 03/06/20 09, 09/13/2008 HPV/Cotest (21-29) 2012 PAP SMEAR 2012 CERVICAL CANCER SCREENING 2021 HPV/Cotest (30-65) 2021 PAP SMEAR 2021 INFLUENZA VACCINE (#1) 2024 05/23/2020 DTAP/TDAP/TD VACCINES (8 - T d or Tdap) 08/12/2033 08/12/2023, 05/02/2006, 05/02/2006, Additional history exists HEPATITIS B VACCINES Completed 05/14/1993, 05/14/1993, 11/08/1992, Additional history exists RSV VACCINE (60+ or ) (No Doses Required) Completed Procedures Procedure Name Priority Date/Time Associated Diagnosis Comments US OB FOLLOW UP + UMB ART Routine 10/05/2024 4:36 PM CASH CHECKER IUGR (intrauterine growth restriction) affecting care of mother, third trimester, fetus 1 from Last 3 Months Results * US OB FOLLOW UP + UMB ART (10/05/2024 4:36 PM CASH CHECKER) Anatomical Region Laterality Modality Pelvis Ultrasound 10/05/2024 3:40 PM CASH CHECKER Narrative 10/05/2024 4:54 PM CASH CHECKER STL FOLLOW UP ----- Pat. Name: JENNIFER CROFT Study Date: 10/05/2024 3:40pm Pat. NO: [id number] Referring MD: RAHAT MOORE MD Site: [facility] [employer] Back Liner: Haleigh AmayaHudson SORENSEN : 1990 Age: 34 ----- INDICATION ----- Screening for IUGR Anatomy Survey CODING ----- Diagnoses Z3A.30: Weeks of gestation Z36.3: Encounter for screening for malformations Z36.4: Encounter for screening for growth retardation Procedures 82912: Ultrasound, uterus, real time with image documentation, follow up, transabdominal approach per fetus 90170: Doppler velocimetry, ; umbilical artery MATERNAL ASSESSMENT ----- Physical Exam Weight 67 kg. BMI 26.89 kg/m METHOD ----- Transabdominal ultrasound examination, Transabdominal ultrasound examination. View: Good view ----- Rico . Number of fetuses: 1 DATING ----- LMP on: 03/08/2024 GA by LMP 30 w + 1 d DELANEY by LMP: 12/13/2024 GA by prior assessment 30 w + 1 d DELANEY by prior assessment: 12/13/2024 Ultrasound examination on: 10/05/2024 GA by U/S based upon: AC, BPD, EFW, Femur, HC GA by U/S 29 w + 0 d DELANEY by U/S: 12/21/2024 Method of dating: Restore dating from previous exam Assigned: based on the LMP, selected on 08/22/2024 Assigned GA 30 w + 1 d Assigned DELANEY: 12/13/2024 BIOMETRY ----- BPD 72.1 mm 29w 0d 9% Hadlock OFD 94.5 mm 30w 4d 60% Aishwarya HC 266.5 mm 29w 0d 3% Hadlock AC 251.5 mm 29w 2d 23% Hadlock Femur 55.4 mm 29w 1d 13% Hadlock Humerus 51.1 mm 29w 6d 47% Aishwarya HC / AC 1.06 38% Nicolaides Weight Calculation: EFW 1,359 g 28w 6d 14% Hadlock EFW (lb,oz) 3 lb 0 oz EFW by Hadlock ([id number]) Extremities / Bony Struc Biometry: FL / BPD 0.77 FL / HC 0.21 FL / AC 0.22 GENERAL EVALUATION ----- Cardiac activity present. FHR 151 bpm. movements: visualized, present. Presentation: cephalic Placenta: anterior Umbilical cord: Cord vessels: 3 vessel cord. Insertion site: placental insertion: normal Amniotic fluid: Amount of AF: normal amount. MVP 5.1 cm. OSCAR 17.9 cm. Q1 5.1 cm, Q2 4.7 cm, Q3 4.3 cm, Q4 3.8 cm DOPPLER ----- Umbilical Artery: PI 1.17 86% Enoch RI 0.71 83% Enoch PS 46.87 cm/s 57% Ebbing ED 14.20 cm/s TAmax 28.28 cm/s 37% Ebbing MD 13.39 cm/s S / D 3.56 83% Enoch HR 157 bpm ANATOMY ----- The following structures appear normal: Head / Neck Cranium. Lateral ventricles. Choroid plexus. Midline falx. Cavum septi pellucidi. Cerebellum. Cisterna magna. Heart / Thorax 4-chamber view. RVOT view. LVOT view. Diaphragm. Abdomen Stomach. Kidneys. Bladder. GROWTH OVERVIEW ----- Exam date GA BPD (mm) HC (mm) AC (mm) FL (mm) HL (mm) EFW (g) 08/22/2024 23w 6d 53.7 5% 200.6 1% 177.7 11% 39.7 11% 37.6 20% 523 6% 10/05/2024 30w 1d 72.1 9% 266.5 3% 251.5 23% 55.4 13% 51.1 47% 1,359 14% COMMENT ----- Patient's name and date of were verified by the cast iron drain pipe layer prior to the exam IMPRESSION ----- Rico viable intrauterine at 30w 1d. Estimated weight is 1359 g (14%ile), with abdominal circumference at 23%ile, which is not consistent with growth restriction. Amniotic fluid volume is normal amount (amniotic fluid index = 17.9 cm, maximum vertical pocket = 5.1 cm) Umbilical artery indices are wnl. Recommend Repeat growth in 2 weeks (2 weeks) with primary OB. If normal, repeat in 4 (36 weeks) weeks. Thank you for inviting us to participate in your patient's care Procedure Note Lisa Moscoso MD - 10/05/2024 STL FOLLOW UP ----- Pat. Name:Huber CROFT Date:10/05/2024 3:40pm Pat. NO: [id number] MD:RAHAT MOORE [facility]Haleigh Gonzalez RDMS :1990Age:34 ----- INDICATION ----- Screening for IUGR Anatomy Survey CODING ----- Diagnoses Z3A.30: Weeks of gestation Z36.3: Encounter for screening formalformations Z36.4: Encounter for screening for fetalgrowth retardation Procedures 47579: Ultrasound, uterus, real time withimage documentation, follow up, transabdominal approach per fetus 31315: Doppler velocimetry, ; umbilicalartery MATERNAL ASSESSMENT ----- Physical Exam Weight 67 kg. BMI 26.89 kg/m METHOD ----- Transabdominal ultrasound examination, Transabdominal ultrasoundexamination. View: Good view ----- Rico . Number of fetuses: 1 DATING ----- LMP on:03/08/2024 GA by [email or web address] w + 1 d DELANEY by LMP:12/13/2024 GA by prior [email or web address] w + 1 d DELANEY by prior assessment:12/13/2024 Ultrasound examination on:10/05/2024 GA by U/S based upon:AC, BPD, EFW, Femur, HC GA by U/S29 w + 0 d DELANEY by U/S:12/21/2024 Method of dating:Restore dating from previous exam Assigned:based on the LMP, selected on 08/22/2024 Assigned GA30 w + 1 d Assigned DELANEY:12/13/2024 BIOMETRY ----- BPD 72.1 mm 29w 0d9% Hadlock OFD 94.5 mm 30w 4d60% Aishwarya HC 266.5 mm 29w 0d3% Hadlock AC 251.5 mm 29w 2d23% Hadlock Femur 55.4 mm 29w 1d13% Hadlock Humerus 51.1 mm 29w 6d47% Aishwarya HC / AC 1.06 38%Nicolaides Weight Calculation: EFW 1,359 g 28w 6d14% Hadlock EFW (lb,oz) 3 lb 0 oz EFW by Hadlock ([id number]) Extremities / Bony Struc Biometry: FL / BPD 0.77 FL / HC 0.21 FL / AC 0.22 GENERAL EVALUATION ----- Cardiac activity present. FHR 151 bpm. movements: visualized,present. Presentation: cephalic Placenta: anterior Umbilical cord: Cord vessels: 3 vessel cord. Insertion site: placentalinsertion: normal Amniotic fluid: Amount of AF: normal amount. MVP 5.1 cm. OSCAR 17.9 cm. Q15.1 cm, Q2 4.7 cm, Q3 4.3 cm, Q4 3.8 cm DOPPLER ----- Umbilical Artery: PI 1.17 86%Enoch RI 0.71 83%Enoch PS 46.87 cm/s 57%Ebbing ED 14.20 cm/s TAmax 28.28 cm/s 37%Ebbing MD 13.39 cm/s S / D 3.56 83%Enoch HR 157 bpm ANATOMY ----- The following structures appear normal: Head / Neck Cranium. Lateral ventricles. Choroid plexus.Midline falx. Cavum septi pellucidi. Cerebellum. Cisterna magna. Heart / Thorax 4-chamber view. RVOT view. LVOT view. Diaphragm. Abdomen Stomach. Kidneys. Bladder. GROWTH OVERVIEW ----- Exam date GA BPD (mm) HC (mm) AC (mm) FL(mm) HL (mm) EFW (g) 08/22/2024 23w 6d 53.7 5% 200.6 1% 177.7 11% 39.711% 37.6 20% 523 6% 10/05/2024 30w 1d 72.1 9% 266.5 3% 251.5 23% 55.413% 51.1 47% 1,359 14% COMMENT ----- Patient's name and date of were verified by the cast iron drain pipe layer prior tothe exam IMPRESSION ----- Rico viable intrauterine at 30w 1d. Estimated weight is 1359 g (14%ile), with abdominal circumference at23%ile, which is not consistent with growth restriction. Amniotic fluid volume is normal amount (amniotic fluid index = 17.9 cm,maximum vertical pocket = 5.1 cm) Umbilical artery indices are wnl. Recommend Repeat growth in 2 weeks (2 weeks) with primary OB. If normal,repeat in 4 (36 weeks) weeks. Thank you for inviting us to participate in your patient's care us Willy Esquivel MD US ORDERABLES Final Re sult from Last 3 Months Insurance [employer] CHOICE POS II
[2024-12-11 10:22] LABS: Creatinine Urine 30.6 mg/dL; Total Protein Urine Random 32 mg/dL; Ur Ttl Prot Creatinine Ratio 1.05 mg/mg (0-0.20)
--- NOTE | 2024-12-11 10:27 | PC.NURSE ---
Christopher Garland updated with lab results. CNM to come over and speak with the pt to inform her that she will be staying for induction.
--- NOTE | 2024-12-11 10:39 | PC.NURSE ---
Christopher Garland at the bedside discussing POC with the pt. CNM explained risk vs benefits of induction.CNM answered all questions.
--- NOTE | 2024-12-11 12:18 | LDADM ---
This patient, Jennifer Croft, was admitted to Labor/Delivery/Recovery 109 on 12/11/24 at 11:10. Plans for labor, pain management and were discussed with patient. Patient/family oriented to hospital policies and general routines including ID bracelet, bed and alarms, visiting hours, pain management, procedures, bathroom and other care routines, personal items, smoking policy, room service/diet and guest tray routines, security routines, and visiting hours. Patient/Family are encouraged to report perceived risks to care and to ask questions if they do not understand what they are told or what they should do. See OBIX for further documentation.
--- NOTE | 2024-12-11 12:26 | PM.IMHP ---
H&P: HPI History of Present Illness Date/Time: 12/11/24 12:26 Chief Complaint: pt is a 34 y.o. at 39.5 weeks here for IOL due to preeclampsia without severe features. Pt denies headache, visual changes, epigastric pain. complicated by anxiety, no current medications and hx of resolved IUGR Review of Systems Review of Systems: All systems reviewed & are unremarkable except as noted in HPI and below PMFSH Family History Family History (Updated 11/16/24 @ 13:27 by Cathleen Conrad RN) Other Addiction Congestive heart failure Diabetes mellitus Social History Social History Substance use: never Spiritual care concerns: No Meds Home Medications and Allergies Home Medications ?Medication ?Instructions ?Recorded ?Confirmed ?Type calcium 300 mg-D3 25 mcg-magnesium tablet PO DAILY 12/11/24 History 66 mg-K2 37.5 mcg-herbal tablet (Alive Calcium-Vitamin D3-K2) cyanocobalamin (vitamin B-12) 500 500 mcg PO DAILY 12/11/24 12/11/24 History mcg tablet (B-12 DOTS) docosahexaenoic acid 200 mg mg PO DAILY 12/11/24 History capsule (Algal [place]-3 DHA) magnesium glycinate 100 mg (as 100 mg PO DAILY 12/11/24 12/11/24 History glycinate) tablet mv-min [id number] PO DAILY 12/11/24 History Allergies Allergy/AdvReac Type Severity Reaction Status Date / Time kiwi Allergy Intermediate Swelling Verified 12/11/24 12:06 Vital Signs Vital Signs - 24 hr 12/11/24 09:45 12/11/24 10:00 12/11/24 10:15 Pulse Rate 75 75 76 Blood Pressure 142/86 H 137/78 148/75 H Blood Pressure [Right Arm] 12/11/24 10:16 12/11/24 10:30 12/11/24 10:45 Pulse Rate 75 91 104 H Blood Pressure 141/76 H 157/93 H Blood Pressure [Right Arm] 137/78 Exam Narrative: preeclampsia without severe features, co-managed with Dr. Soria anticipate vaginal delivery FHR category 1 Const: General: cooperative, healthy appearing and comfortable Resp: Effort & Inspection: normal respiratory effort Auscultation: clear to auscultation bilaterally Cardio: Rate: regular rate Rhythm: regular rhythm GI: Other: gravid/soft Back/Spine/Pelvis: Back: no CVA tenderness Skin: General skin exam: normal color, no rashes or lesions noted and elasticity normal Neuro: General: patient oriented x3, gait normal, tone normal and moves all extremities H&P: Results Labs Labs: Short CBC 12/11/24 Range/Units 09:30 WBC 8.4 (4.5-10.0) K/mm3 Hgb 12.5 (12.0-15.0) g/dL Hct 39.7 (37.0-47.0) % Plt Count 336 (150-375) k/mm3 BMP 12/11/24 09:30 Sodium 134 L Potassium 4.2 Chloride 104 Carbon Dioxide 21 L BUN 7 Creatinine 0.76 Glucose 87 Calcium 9.2 Liver Function 12/11/24 Range/Units 09:30 Total Bilirubin 0.4 (0.2-1.3) mg/dL AST 23 (14-36) U/L ALT 16 (6-35) U/L Alkaline Phosphatase 247 H (38-126) U/L Albumin 4.0 (3.5-5.1) g/dL Urine 12/11/24 Range/Units 09:30 Urine Color Yellow (Yellow) Urine Appearance Clear (Clear) Urine pH 7.5 (5.0-9.0) Ur Specific [place] 1.005 (1.001-1.035) Urine Protein Trace (Negative) mg/dL Urine Glucose (UA) Negative (Negative) mg/dL
--- NOTE | 2024-12-11 13:05 | PC.NURSE ---
received verbal order for low dose Pitocin to be given and increased in increments of 2 milliunits per hour
[2024-12-11 13:14] LABS: HIV 1/2 Ab P24 Ag Result Negative (Negative)
[2024-12-11 13:22] LABS: Syphilis IgG/IgM Antibody Negative (Negative)
[2024-12-11] MEDS: OXYTOCIN 30 UNITS/NS 500 ML 30 UNITS/500 ML BAG 6 UNITS IV CONT (14:01)
[2024-12-11] MEDS: LACTATED RINGERS 1,000 ML 125 ML IV CONT (14:04)
--- NOTE | 2024-12-11 16:52 | WPDANESEPPF ---
Anes - Initial Pre Proc Eval Procedure: Labor Epidural Date/Time: 12/11/24 16:52 Surgeon: Iron Soria MD Pre Op Diagnosis: Induction of Labor Patient Data Age: 34 Gender: F Height: 1.63 m Weight: 80 kg Last Vital Signs Temp 37.1 C 12/11/24 15:25 Pulse 86 12/11/24 16:15 BP 127/76 12/11/24 16:15 O2 Del Method Room Air 12/11/24 12:18 Allergies Allergy/AdvReac Type Severity Reaction Status Date / Time kiwi Allergy Intermediate Swelling Verified 12/11/24 12:06 Home Medications ?Medication ?Instructions ?Recorded ?Confirmed ?Type calcium 300 mg-D3 25 mcg-magnesium tablet PO DAILY 12/11/24 History 66 mg-K2 37.5 mcg-herbal tablet (Alive Calcium-Vitamin D3-K2) cyanocobalamin (vitamin B-12) 500 500 mcg PO DAILY 12/11/24 12/11/24 History mcg tablet (B-12 DOTS) docosahexaenoic acid 200 mg mg PO DAILY 12/11/24 History capsule (Algal [place]-3 DHA) magnesium glycinate 100 mg (as 100 mg PO DAILY 12/11/24 12/11/24 History glycinate) tablet mv-min [id number] PO DAILY 12/11/24 History Laboratory Tests 12/11/24 12/11/24 09:30 11:59 WBC 8.4 K/mm3 (4.5-10.0) RBC 4.47 M/mm3 (4.2-5.4) Hgb 12.5 g/dL (12.0-15.0) Hct 39.7 % (37.0-47.0) MCV 88.8 fl (80-100) MCH 28.0 pg (26-34) MCHC 31.5 L g/dl (32-36) RDW 12.3 % (11.5-14.5) Plt Count 336 k/mm3 (150-375) MPV 11.0 H fl (7.4-10.4) Immature Gran % (Auto) 0.5 % (0-0.5) Neut % (Auto) 62.4 % (45.5-73.1) Lymph % (Auto) 25.1 % (18.3-44.2) [place] % (Auto) 10.0 H % (2.6-8.5) Eos % (Auto) 1.8 % (0-4.4) Baso % (Auto) 0.2 % (0.2-1.2) Lymph # (Auto) 2.10 K/mm3 (0.9-3.2) [place] # (Auto) 0.8 H K/mm3 (0.1-0.6) Eos # (Auto) 0.2 K/mm3 (0-0.3) Baso # (Auto) 0.0 K/mm3 (0.0-0.1) Abs Immat Gran (auto) 0.04 H K/mm3 (0.00-0.031) Absolute Neuts (auto) 5.2 K/mm3 (1.3-6.7) Absolute Nucleated RBC 0.000 K/mm3 (0.0-0.012) Nucleated RBC % 0.0 % (0.0-0.2) Sodium 134 L mmol/L (137-145) Potassium 4.2 mmol/L (3.4-5.0) Chloride 104 mmol/L (98-107) Carbon Dioxide 21 L mmol/L (22-30) Anion Gap 9 mmol/L (4-12) BUN 7 mg/dL (7-17) Creatinine 0.76 mg/dL (0.7-1.0) Estim Creat Clear Calc Not Reportable Estimated GFR > 60 (59 - ) Glucose 87 mg/dL (65-110) Uric Acid 4.0 mg/dL (2.5-7.5) Calcium 9.2 mg/dL (8.4-10.2) Total Bilirubin 0.4 mg/dL (0.2-1.3) AST 23 U/L (14-36) ALT 16 U/L (6-35) Alkaline Phosphatase 247 H U/L (38-126) Total Protein 8.0 g/dL (6.3-8.2) Albumin 4.0 g/dL (3.5-5.1) Urine Color Yellow (Yellow) Urine Appearance Clear (Clear) Urine pH 7.5 (5.0-9.0) Ur Specific [place] 1.005 (1.001-1.035) Urine Protein Trace mg/dL (Negative) Urine Glucose (UA) Negative mg/dL (Negative) Urine Ketones Negative mg/dL (Negative) Ur Blood (Man) Negative (Negative) Urine Nitrate Negative (Negative) Urine Bilirubin Negative (Negative) Urine Urobilinogen 0.2 mg/dL (<2.0) Leukocyte Esterase Rfl 2+ H [place]/UL (Negative) Urine RBC 0-2 /hpf (0-2) Urine WBC 11-20 H /hpf (0-3) Ur Squamous Epith Cells Moderate /hpf (Few) Urine Bacteria Rare /hpf Urine Casts 0-2 U Random Total Protein 32 mg/dL Urine Creatinine 30.6 mg/dL Protein/Creat Ratio 2 1.05 H mg/mg (0-0.20) Syphilis IgG/IgM Ab Negative (Negative) HIV 1&2 Ab/P24 Ag 4thGn Negative (Negative) Blood Type B Positive Antibody Screen Negative : gestational age (, DELANEY 12/13/24) HCG: positive Patient hx anesthesia problems: none Family hx anesthesia problems: none Results Review: All pre-operative results and documents have been reviewed as part of the pre-operative evaluation. [facility] Family History Family History Other Addiction Congestive heart failure Diabetes mellitus Social History Social History Smoking status: Never smoker Substance use: never Do You Feel Safe in your Home?: Yes Lack of Transportation: No Lack of Food: Never True Current Housing: I Have Housing Concerned About Future Housing: No Difficulty Paying Gas/Electric Bills: No Difficulty Paying for Meds: No Currently Unemployed: No Education: Master's Degree or Higher Difficulty w/ Childcare or Family Care: No Spiritual care concerns: No Anes - Eval Final PreProcedure Day of Procedure 12/11/24 16:52 Patient weight: normal Heart: regular rate and rhythm Lungs: normal air movement Airway: Mallampati scale class II Neurological: alert and oriented Last oral intake: 2 hours ASA classification: II Emergent: no Anesthetic plan: proceed Anesthesia type and monitoring: regional epidural and standard monitoring Results Review: All pre-operative results and documents have been reviewed as part of the pre-operative evaluation. Informed Consent: The patient's anesthetic plan and its attendant risks and benefits were discussed with the patient/family/POA. Questions were solicited and answers provided to the satisfaction of the patient/family/POA.
[2024-12-11] MEDS: OXYTOCIN 10 UNITS/ML VIAL 20 UNITS (18:20)
--- NOTE | 2024-12-11 18:22 | PM.OBPRVD ---
OB - Vaginal Delivery Note Procedure Delivery date: 12/11/24 Events: Preeclampsia w/o severe features Induction method: AROM and Per Pitocin Protocol Delivery monitor: External FHT and Internal Uterine Route of delivery: Episiotomy description: None Laceration Description: Labial (no repair) Specimen: No Quantitative Blood Loss (ml): 100 Anesthesia type: Epidural Disposition: PACU Complications: No immediate complications Baby Date of : 12/11/24 Time of : 18:04 Gestational Age by Date: 39 gender: Female presentation: vertex position: Left Occiput Anterior Placenta delivery description: Spontaneous Cord Vessel Description: 3 Vessels and Delayed Cord Clamping score one minute: 8 score five minutes: 9
--- NOTE | 2024-12-11 20:50 | OBPPTRN ---
Patient transferred to post room #280 via wheelchair. Support person present. Oriented to unit, room, information board, rooming in, admission packet and security measures. Patient verbalizes understanding.
[2024-12-11] MEDS: IBUPROFEN 600 MG TABLET PO (22:50)
[2024-12-11] MEDS: ACETAMINOPHEN 325 MG TABLET 650 MG PO (22:50)
[2024-12-12 01:45] VITALS: BP 131/79; PULSE 65; RESP 16; TEMP 36.3; O2SAT 99
[2024-12-12] MEDS: ACETAMINOPHEN 325 MG TABLET 650 MG PO (05:20)
[2024-12-12] MEDS: IBUPROFEN 600 MG TABLET PO (05:21)
[2024-12-12 05:24] VITALS: BP 118/82; PULSE 74; RESP 16; TEMP 37.2; O2SAT 98
[2024-12-12 05:43] LABS: Hematocrit 31.7 % (37.0-47.0); Hemoglobin 10.2 g/dL (12.0-15.0)
[2024-12-12 06:45] VITALS: BP 113/65; PULSE 110; RESP 18; TEMP 36.6; O2SAT 100
--- NOTE | 2024-12-12 07:10 | PC.NURSE ---
Patient needing assistance with latching baby. She has baby in football position on the left breast. We repositioned baby for better alignment and she awakened and cried. It took several tries to elicit a wide gape and then an appropriate latch was obtained. Baby suckled for a short burst and then stopped. We tried to continue to stimulate baby to suck without success. She ate 2 hours ago so we allowed baby to remain close to mom to sleep. Mom is educated about a deep latch, positioning and alignment. We also reviewed feeding cues and responsive . Mom has an [employer]vy wearable breast pump at the bedside. She doesn't have the manual here. We looked at the basic function of the pump and reviewed that the suction can be adjust to the highest comfortable setting. The flange size is 24mm and mom is encouraged to start with this size first to see how it feels. If needed, she states she has additional flange sizes at home. When questioned about her feeding intentions and why she wants to pump she states that she doesn't want to be solely responsible for all feedings. Educated that she will still need to empty her breasts frequently (every 3 hours) to maintain a milk supply. She acknowledges understanding of this information. Patient has the name/number for further assistance. RN updated.
--- NOTE | 2024-12-12 07:53 | PM.OBPNVD ---
OB - PN: Subj Subjective Date/time seen: 12/12/24 07:53 Interval history: pp day 1 no complaints bp normotensive, denies johns, visual changes, epigastric pain plan early d/c tomorrow OB - PN: Obj Data Labs 12/12/24 05:32 12/11/24 09:30 Labs: Laboratory Results - last 24 hr 12/11/24 12/11/24 12/12/24 09:30 11:59 05:32 WBC 8.4 RBC 4.47 Hgb 12.5 10.2 L Hct 39.7 31.7 L MCV 88.8 MCH 28.0 MCHC 31.5 L RDW 12.3 Plt Count 336 MPV 11.0 H Immature Gran % (Auto) 0.5 Neut % (Auto) 62.4 Lymph % (Auto) 25.1 [place] % (Auto) 10.0 H Eos % (Auto) 1.8 Baso % (Auto) 0.2 Lymph # (Auto) 2.10 [place] # (Auto) 0.8 H Eos # (Auto) 0.2 Baso # (Auto) 0.0 Abs Immat Gran (auto) 0.04 H Absolute Neuts (auto) 5.2 Absolute Nucleated RBC 0.000 Nucleated RBC % 0.0 Sodium 134 L Potassium 4.2 Chloride 104 Carbon Dioxide 21 L Anion Gap 9 BUN 7 Creatinine 0.76 Estim Creat Clear Calc Not Reportable Estimated GFR > 60 Glucose 87 Uric Acid 4.0 Calcium 9.2 Total Bilirubin 0.4 AST 23 ALT 16 Alkaline Phosphatase 247 H Total Protein 8.0 Albumin 4.0 Urine Color Yellow Urine Appearance Clear Urine pH 7.5 Ur Specific [place] 1.005 Urine Protein Trace Urine Glucose (UA) Negative Urine Ketones Negative Ur Blood (Man) Negative Urine Nitrate Negative Urine Bilirubin Negative Urine Urobilinogen 0.2 Leukocyte Esterase Rfl 2+ H Urine RBC 0-2 Urine WBC 11-20 H Ur Squamous Epith Cells Moderate Urine Bacteria Rare Urine Casts 0-2 U Random Total Protein 32 Urine Creatinine 30.6 Protein/Creat Ratio 2 1.05 H Syphilis IgG/IgM Ab Negative HIV 1&2 Ab/P24 Ag 4thGn Negative Blood Type B Positive Antibody Screen Negative OB - PN A/P Plan day: 1 Plan: routine care Time Spent With Patient Time: Total time spent is greater than 50% in coordination of care (as documented) at patient's floor/unit and/or counseling patient: Review of Systems Review of Systems: All systems reviewed & are unremarkable except as noted in HPI and below Exam Const: General: cooperative and healthy appearing Chest: Chest palpation & inspection: normal inspection of the chest Resp: Effort & Inspection: normal respiratory effort Cardio: Rate: regular rate Back/Spine/Pelvis: Back: no CVA tenderness Skin: General skin exam: normal color
--- NOTE | 2024-12-12 07:56 | PM.OBDSVD ---
DS: Admitting Diagnosis Discharge Date 12/13/24 Admitting Diagnosis preeclampsia DS: Discharge Diagnosis Discharge Diagnosis (1) Vaginal delivery: Code(s): O80 - Encounter for full-term uncomplicated delivery Status: Acute OB - DS: Summary OB Procedures : None OB Procedures Intrapartum: Spontaneous Vag Delivery OB Procedures: : None Peripartum Data Laceration Description: Labial (no repair) Episiotomy description: None Time Spent with Patient Time attestation: Total time spent providing and/or coordinating discharge services: DS: Data Data Completed and Pending Labs on day of discharge: Labs from last 24 hours 12/12/24 12/11/24 12/11/24 05:32 11:59 09:30 WBC 8.4 RBC 4.47 Hgb 10.2 L 12.5 Hct 31.7 L 39.7 MCV 88.8 MCH 28.0 MCHC 31.5 L RDW 12.3 Plt Count 336 MPV 11.0 H Immature Gran % (Auto) 0.5 Neut % (Auto) 62.4 Lymph % (Auto) 25.1 [place] % (Auto) 10.0 H Eos % (Auto) 1.8 Baso % (Auto) 0.2 Lymph # (Auto) 2.10 [place] # (Auto) 0.8 H Eos # (Auto) 0.2 Baso # (Auto) 0.0 Abs Immat Gran (auto) 0.04 H Absolute Neuts (auto) 5.2 Absolute Nucleated RBC 0.000 Nucleated RBC % 0.0 Sodium 134 L Potassium 4.2 Chloride 104 Carbon Dioxide 21 L Anion Gap 9 BUN 7 Creatinine 0.76 Estim Creat Clear Calc Not Reportable Estimated GFR > 60 Glucose 87 Uric Acid 4.0 Calcium 9.2 Total Bilirubin 0.4 AST 23 ALT 16 Alkaline Phosphatase 247 H Total Protein 8.0 Albumin 4.0 Urine Color Yellow Urine Appearance Clear Urine pH 7.5 Ur Specific [place] 1.005 Urine Protein Trace Urine Glucose (UA) Negative Urine Ketones Negative Ur Blood (Man) Negative Urine Nitrate Negative Urine Bilirubin Negative Urine Urobilinogen 0.2 Leukocyte Esterase Rfl 2+ H Urine RBC 0-2 Urine WBC 11-20 H Ur Squamous Epith Cells Moderate Urine Bacteria Rare Urine Casts 0-2 U Random Total Protein 32 Urine Creatinine 30.6 Protein/Creat Ratio 2 1.05 H Syphilis IgG/IgM Ab Negative HIV 1&2 Ab/P24 Ag 4thGn Negative Blood Type B Positive Antibody Screen Negative Discharge Plan Discharge Attending physician on discharge: Iron Soria Consulting providers: Haleigh Garland Discharging Clinician: Haleigh Garland Patient Disposition: Home Activity: pelvic rest Diet: regular Patient Instructions: Antibiotic Form Patient Language: [place]at[place] Stand Alone Forms: General Discharge Information Follow-up/Referrals: Haleigh Garland, CNM [Certified Nurse [employer] Member] - ( 1 week bp check 4 week ) Discharge Medications: Continued mv-min [id number] [Alive Daily Support ] PO DAILY Algal [place]-3 DHA 200 mg capsule PO DAILY Alive Calcium-Vitamin D3-K2 300 mg-25 mcg- 66 mg-37.5 mcg tablet PO DAILY magnesium glycinate 100 mg tablet 100 mg PO DAILY cyanocobalamin (vitamin B-12) [B-12 DOTS] 500 mcg tablet 500 mcg PO DAILY Date of admission: 12/11/24 11:10 Primary Care Provider: UNKNOWN,DOCTOR Admitting Provider: Iron Soria Attending physician on admission: Iron Soria Condition: Stable
--- NOTE | 2024-12-12 08:30 | WPDANLDPN2 ---
Anes-Prog Note L&D Date/Time: 12/12/24 08:30 Comfortable throughout: labor and delivery Neuraxial method: epidural Epidural/Spinal procedure site: clean & non-tender Neuro status: Neuro function grossly intact. Cardiovascular status: normal Respiratory status: normal Airway patency: baseline Mental status: baseline Post-Op hydration status: normal Vital Signs: Last Vital Signs Temp 36.6 C 12/12/24 06:45 Pulse 110 H 12/12/24 06:45 Resp 18 12/12/24 06:45 BP 113/65 12/12/24 06:45 Pulse Ox 100 12/12/24 06:45 O2 Del Method Room Air 12/12/24 06:45 Pain score (VAS): 2 I/O: Intake & Output 12/11/24 12/12/24 12/12/24 23:59 07:59 15:59 Intake Total 500 Output Total 100 Balance 400 Post-procedural complaints: none Patient feedback: Patient satisfied with anesthetic care.
[2024-12-12 12:35] VITALS: BP 135/78; PULSE 68; RESP 18; TEMP 36.9; O2SAT 99
--- NOTE | 2024-12-12 15:30 | PC.NURSE ---
Parents called out for assistance. Mom is still anxious and has a lot of questions. Father is very involved and supportive. We reviewed latching, positioning, skin to skin, using the haakaa, and burping. Mom was shown how to hold baby in the cross cradle position for better control of her head. We also discussed lip rolling, but baby's lip was flanged out. Baby fed on both breasts for a total of 15 minutes. Reassurance provided to parents that they are doing a great job and that baby is feeding just like we would expect her to. Parents are encouraged to stimulate baby throughout feedings if she is sleepy. Discussed on demand feeding rather than watching the clock for scheduled feeds. Parents seem like they prefer definite times and volumes but they are learning that baby will want to feed on her own schedule. We looked at baby for signs of satiety and mom was able to observe how baby's arms were relaxed and her suckles turned to little flutters rather than truly sucking. Parents need reinforcement but have already made progress with since this morning. RN updated.
[2024-12-12 16:34] VITALS: BP 132/69; PULSE 75; RESP 18; O2SAT 99
[2024-12-12 22:14] VITALS: BP 120/78; PULSE 91; RESP 14; TEMP 36.8; O2SAT 100
[2024-12-13 04:30] VITALS: BP 129/76; PULSE 82; RESP 14; TEMP 37.2; O2SAT 100
[2024-12-13] MEDS: ACETAMINOPHEN 325 MG TABLET 650 MG PO (04:54)
[2024-12-13] MEDS: IBUPROFEN 600 MG TABLET PO (04:54)
--- NOTE | 2024-12-13 05:43 | PC.NURSE ---
2230- Assumed care of pt.
[2024-12-13 07:45] VITALS: BP 128/74; PULSE 74; RESP 18; TEMP 36.4; O2SAT 100
--- NOTE | 2024-12-13 07:57 | PM.OBPNVD ---
OB - PN: Subj Subjective Date/time seen: 12/13/24 07:57 Interval history: pp day 2 no complaints bp normotensive, denies johns, visual changes, epigastric pain d/c today OB - PN: Obj Data Labs 12/12/24 05:32 12/11/24 09:30 OB - PN A/P Time Spent With Patient Time: Total time spent is greater than 50% in coordination of care (as documented) at patient's floor/unit and/or counseling patient:
--- NOTE | 2024-12-13 10:10 | PC.NURSE ---
Consulted with mother concerning needs and she shared her ability to independently latch infant optimally without pain. Mother is feeding appropriately for growth of infant and understands stimulating to eat if needed. A full feeding was observed this morning in cradle position on each breast for a total of 20 minutes. has had appropriate feedings in the last 24 hours meets the outcomes for weight, output, blood sugar and jaundice at this time. Reinforced understanding of milk production, transition of milk, signs of adequate intake, transition of stool, prevention/relief of engorgement, plugged ducts, mastitis, responsive watching for feeding cues, the different methods of stimulating to breastfeed 1-3 hours after the start of the last feeding, community resources, and when to call a provider using the resource of the feeding sheet along with the mom and baby guide. Mother has an [place] breast pump and a haakaa that we discussed use of. Mom is anxious and had a lot of questions regarding weight loss and milk production. We were able to hear swallows while baby was feeding and parents are encouraged that they are doing a great job and can be confident they will succeed at home. Father is present and very supportive and engaged. Mother voiced understanding of the information shared, is confident to continue effectively her infant at home, when to call for assistance, denies any additional assistance or education at this time. Reported to the Primary RN.
[2024-12-14 10:10] VITALS: BP 137/83; PULSE 78; RESP 18; TEMP 36.7; O2SAT 100
--- NOTE | 2024-12-14 16:28 | PC.NURSE ---
[id number] RN called to see patient per Zaheer Conrad, follow up RN to assess latch and mother had questions. Introductions were made, then consulted with patient to assess needs related to . Per mother baby has breastfed well from her left breast but had not latched this morning from her right breast and it was feeling full and uncomfortable. Per mother baby prefers the cross cradle position when on her left breast so RN suggested mother try and latch on her right breast in football position. RN reviewed positioning and alignment, supporting breast, off-centered (asymmetrical latch) and leading with the chin with big, open, wide gape. Infant latched optimally to the right breast in football position. Education given to the mother of how to visualize the suckling (with good rocking jaw motion) swallows (dropping of the lower jaw) and how to listen for drinking at the breast (the ka sound). The infant was able to maintain latch without discomfort to mother for 20 minutes, afterwards baby had a large void and stool. Nipple care reviewed with optimal latch, good positioning and using clean hands when touching her breast. Resources used to facilitate learning were used from the [visual handouts and the mom and baby guide]. Mother also requested for RN to measure her nipples to make sure she was using the correct flange size, both nipples measured at 23mm, mother was using the size 24 flange which was rubbing so she will use the next size up she has for her [place] Wearable Breast pump. Resources also provided for outpatient services with the feeding sheet, and the mom/baby guide. Mother voiced understanding of information and will call if there are any questions. Reported to the Follow up RN.
== END 2024-12-13 11:22 | disposition home or self-care (01) | DRG 807 ==
LOC: ANHOBOP 11:32 → ANHLDR 11:32 → ANHOB2 21:32
PROVIDERS: Advanced Practice Midwife; Admitting Provider Obstetrics & Gynecology; Visit Provider Obstetrics & Gynecology
DX: O14.94 Unspecified pre-eclampsia, complicating childbirth (principal); Z37.0 Single live birth; Z3A.39 39 weeks gestation of pregnancy; O77.0 Labor and delivery complicated by meconium in amniotic fluid; O71.82 Other specified trauma to perineum and vulva; O99.344 Other mental disorders complicating childbirth; F41.9 Anxiety disorder, unspecified
CPT/HCPCS: 36415; 59025; 80053; 81001; 82570; 84156; 84550; 85014; 85018; 85025; 86593; 86703; 86850; 86900; 86901; A9270; G0432; J2590; J2795; J7120

== ENCOUNTER 2024-12-17 11:33 | Outpatient (CLI) | payer OTHER, SELFPAY ==
--- NOTE | ~2024-12-17 | US_ITS ---
Abdominal Sonogram: Real-time sonographic imaging of the abdomen was performed. Clinical History: Abdominal pain Findings: The liver appears normal with no evidence of mass lesion or bile duct dilatation. Main por sandra vein demonstrates normal direction of flow. The spleen is normal in size without evidence of foca l lesion. The gallbladder is well distended, and appears normal with no evidence of gallstone or wal l thickening. The common bile duct measures 2 mm. The visualized pancreas, aorta, and IVC are unrema rkable. The right kidney measures 11.5 cm in length and the left kidney measures 11.1 cm. There is no hydronephrosis or renal calculus. Impression: Unremarkable abdominal ultrasound. Reviewed, dictated and finalized at location . Impression: Unremarkable abdominal ultrasound.
--- OUTSIDE RECORDS SUMMARY | 2024-12-17 13:11 | XMS_ITS | Encounter Summary ---
Author Organization [facility] Address [address] [place] [id number] Care Team Providers Care Office Manager Executive Assistant Name Role Phone Tanvi Hopkins MD Primary Care Provider [phone] Encounter Details Date Type Department Care Team (Late st Contact Info) Description 01/23/2019 Abstract [facility] [address] [facility] [place] [address] Corrine Pastor DO [address] [place] [address] Social History Tobacco Use Types Packs/Day Years [...] PM CDT Please correct the error in pearl technician is a 3 eosinophils percentage. This is [...] on filedocumented in this encounter Care Teams Office Manager Executive Assistant Relationship Specialty Start Date End Date Tanvi Hopkins MD [facility] [facility] [address] [place] [id number] PCP - General INTERNAL MEDICINE 08/12/23 documented as of this encounter
--- OUTSIDE RECORDS SUMMARY | 2024-12-17 13:11 | XMS_ITS | Clinical Summary ---
Author Organization [facility] Address [address] [place] [address] Care Team Providers Care Content Publisher Name Role Phone Corrine Pastor DO Primary Care Provider [phone] Source Comments [facility],non-owned Affiliates and Associated Physician Practices is amultiple site organization consisting of ambulatory clinics and hospital sitesin [place], [place], [place] and [place]. This disclosure is being madepursuant to the Care Everywhere program and may not contain all information available regarding this patient. Last updated [employer] [facility] Allergies No known active allergies Medications * Be aware that medications may not be up to date on this document. Alwaysverify current medications with the patient. No known medications Immunizations Immunization Administration Dates Next Due INFLUENZA VACCINE, QUADR. (F LUZONE; FLULAVAL; FLUARIX; AFLURIA QUADRIVALENT; 6MO+), 0.5 ML (IIV4) 05/23/2020 Social History Tobacco Use Types Packs/Day Years Used Date Smoking Tobacco: Never Smokeless Tobacco: Never Comments Unknown Sex and Gender Information Value Date Recorded Sex Assigned at Not on file Legal Sex Female 9:32 AM CDT Gender Identity Not on file Sexual [...] VACCINE (1 - 2023-2 5 season) 2024 DEPRESSION SCREENING 09/05/2024 INFLUENZA VACCINE (Season Ended) 2025 05/23/2020, 06/20/2019 ZOSTER VACCINE (1 of 2) 2041 HIB [...] on patient's age to complete this topic Insurance Care Teams Content Publisher Relationship Specialty Start Date End Date Corrine Pastor DO PCP - General Family Medicine 05/23/20
--- OUTSIDE RECORDS SUMMARY | 2024-12-17 13:11 | XMS_ITS | Clinical Summary ---
Author Organization [facility] Address [address] [place] [address] Care Team Providers Care Universal Branch Consultant Name Role Phone Corrine Pastor DO Primary Care Provider [phone] Allergies Active Allergy Reactions Criticality Noted Date Comments Other Swelling Medium 05/25/2018 Kiwi Medications sertraline (ZOLOFT) 50 mg tablet 12/12/2020 Active Active Problems Problem Noted Date Diagnosed Date Episodic tension-type headache, not intractable 12/26/2020 Assessment & Plan (12/26/2020 10:07 AM CDT): Patient has history of muscle contraction type headaches and was seen last at [facility] in 2017. 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
--- OUTSIDE RECORDS SUMMARY | 2024-12-17 13:11 | XMS_ITS | Referral Summary ---
Author Organization [facility] Address [address] [place] [address] Care Team Providers Care Training Assistant Name Role Phone Corrine Pastor DO Primary Care Provider [phone] Allergies Active Allergy Reactions Criticality Noted Date Comments Other Swelling Medium 05/25/2018 Kiwi Medications sertraline (ZOLOFT) 50 mg tablet 12/12/2020 Active Active Problems Problem Noted Date Diagnosed Date Episodic tension-type headache, not intractable 12/26/2020 Assessment & Plan (12/26/2020 10:07 AM CDT): Patient has history of muscle contraction type headaches and was seen last at [facility] in 2017. 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
--- OUTSIDE RECORDS SUMMARY | 2024-12-17 13:12 | XMS_ITS | Clinical Summary ---
Author Organization [facility] Address [address] [place] [phone] Phone Care Team Providers Care Tool Procurement Coordinator Name Role Phone Unavailable Primary Care Provider [...] STL ABSTRACTION Provider, Abstract 10/05/2024 3:30 PM ORTHOPEDIC SPECIALIST - 10/05/2024 11:59 PM ORTHOPEDIC SPECIALIST Hospital Encounter [facility] Maternal and Ground Floor [address] [phone] Willy Esquivel MD Discharge Disposition: Home or [...] on file Legal Sex Female 7:41 AM ORTHOPEDIC SPECIALIST Gender Identity Not on file Sexual Orientation Not on file Last Filed Vital Signs Vital Sign Reading Time Taken Comments Blood Pressure 131/54 08/22/2024 11:07 AM ORTHOPEDIC SPECIALIST BP M: 73 Pulse - - Temperature - - Respiratory Rate - - Oxygen Saturation - - Inhaled Oxygen Concentration - - Weight 66.7 kg (147 lb) 08/22/2024 11:07 AM ORTHOPEDIC SPECIALIST Height 162.6 cm (5' 4 ) 08/22/2024 11:07 AM ORTHOPEDIC SPECIALIST Body Mass Index 25.23 08/22/2024 11:07 AM ORTHOPEDIC SPECIALIST Plan of Treatment Health Maintenance Due Date [...] + UMB ART Routine 10/05/2024 4:36 PM ORTHOPEDIC SPECIALIST IUGR (intrauterine growth restriction) affecting care of mother, third trimester, fetus 1 from Last 3 Months Results * US OB FOLLOW UP + UMB ART (10/05/2024 4:36 PM ORTHOPEDIC SPECIALIST) Anatomical Region Laterality Modality Pelvis Ultrasound 10/05/2024 3:40 PM ORTHOPEDIC SPECIALIST Narrative 10/05/2024 4:54 PM ORTHOPEDIC SPECIALIST STL FOLLOW UP ----- Pat. Name: JENNIFER CROFT Study Date: 10/05/2024 3:40pm Pat. NO: [id number] Referring MD: RAHAT MOORE MD Site: 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 Helper: Haleigh AmayaHudson SORENSEN : 1990 Age: 34 ----- INDICATION ----- Screening for IUGR Anatomy Survey CODING ----- Diagnoses Z3A.30: Weeks of gestation Z36.3: Encounter for screening for malformations Z36.4: Encounter for screening for growth retardation Procedures 57885: Ultrasound, uterus, real time with image documentation, follow up, transabdominal approach per fetus 69190: Doppler velocimetry, ; umbilical artery MATERNAL ASSESSMENT [...] 3 lb 0 oz EFW by Hadlock ([id number]) Extremities / Bony Struc Biometry: FL / [...] and date of were verified by the nurse licensed practical prior to the exam IMPRESSION ----- Rico [...] Pat. Name:Huber CROFT Date:10/05/2024 3:40pm Pat. NO: [id number] MD:RAHAT MOORE [facility]Haleigh Gonzalez RDMS :1990Age:34 ----- INDICATION ----- Screening for IUGR Anatomy Survey CODING ----- Diagnoses Z3A.30: Weeks of gestation Z36.3: Encounter for screening formalformations Z36.4: Encounter for screening for fetalgrowth retardation Procedures 90657: Ultrasound, uterus, real time withimage documentation, follow up, transabdominal approach per fetus 30215: Doppler velocimetry, ; umbilicalartery MATERNAL ASSESSMENT ----- Physical Exam Weight 67 kg. BMI 26.89 kg/m METHOD ----- Transabdominal ultrasound examination, Transabdominal ultrasoundexamination. View: Good view ----- Rico . Number of fetuses: 1 DATING ----- LMP on:03/08/2024 GA by [id number] w + 1 d DELANEY by LMP:12/13/2024 GA by prior w + 1 d DELANEY by prior [...] 3 lb 0 oz EFW by Hadlock ([id number]) Extremities / Bony Struc Biometry: FL / [...] and date of were verified by the nurse licensed practical prior tothe exam IMPRESSION ----- Rico viable [...]
--- OUTSIDE RECORDS SUMMARY | 2024-12-17 13:12 | XMS_ITS | Encounter Summary ---
Author Organization [facility] Address [facility]ly [facility] [place] [address] Care Team Providers Care Special Education Instructor Name Role Phone Tanvi Hopkins MD Primary Care Provider [phone] Encounter Details Date Type Department Care Team (Latest Contact Info) Description 12/19/2023 CensorNet Message Enc [facility] - [address] [address] [address] [place] [address] Tanvi Hopkins MD [address] [place] [address] [address] [place] [address] New Test Result email - [...] Depression Total Score: 1 08/12/20 9:24 AM 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
--- OUTSIDE RECORDS SUMMARY | 2024-12-17 13:12 | XMS_ITS | Continuity of Care Document ---
Author Organization [facility] Address [address] [place] [address] Care Team Providers Care Research Engineer Name Role Phone DIANDRA BLEVINS Primary Care Provider [phone] Assessment No assessment recorded. Plan of Treatment Reminders Order Date Submit Date Provider Last Modified By Organization Details Last Modified Time Details Appointments OB PROBLEM 2024 09:00A Tiffany PATEL MD Not available Not available Not available BLOOD PRESSURE CHECK 2024 04:45P Tiffany PATEL MD Not available Not available Not available POST 2024 04:45P Tiffany Garland CNM Not available Not available Not available Lab None recorded. Referral None recorded. Procedures None recorded. Surgeries None recorded. Imaging None recorded. Medication Orders Macrobid 100 mg capsule [address] [facility], [address] [place] [address], [place], [address], 12/17/2024 11:46:52 Patient TargetsNo targets recorded. Patient InstructionsNo instructions recorded. Reason for Referral None Reported. Results Created Date Observation Date Name Description Value Unit Range Abnormal Flag Note LastModifiedBy Organization Detail LastModifiedTime 11/02/1911/02/2024 non-s tress test No observ ation record ed. Ashley [address], [place], [address], 11/02/2024 18:12:45 11/02/1911/02/2024 non-s tress test No observ ation record ed. [email or web address] Ashley [address], [place], [address], 11/02/2024 18:17:24 12/18/19 25 12/17/2024 US, abdom en, compl ete No observ ation record ed. [address], [place], [address], 12/17/2024 13:18:34 12/18/19 25 12/17/2024 US, abdom en, compl ete No observ ation record ed. [address], [place], [address], 12/17/2024 13:25:48 Result Notes None recorded. Problems Name Problem SNOMED Code Status Onset Date Resolution Date Notes Provider Name and Address Organization Details Recorded Time Pregnanc y 24210334 Completed 202412/17/2024 Tamara roman, [facility] 5 10:57:59 growth restrict ion 10084928 Completed has f/u chet [facility], offered here sooner 6% efw Haleigh Garland CNM [address], [place], [address], [facility] 5 11:33:54 Anxiety 34946890 Completed given rx for lexapro and hydroxyz ine by nelson ZEPEDA, has not filled yet Haleigh Garland CNM [address], [place], [address], [facility] 5 11:33:05 Problem Notes None recorded. Procedures Surgical History Date Name Laterality Status Provider Name and Address Organization Details Recorded Time 4 Colposcopy completed Marly Disla [facility] 10/07/2024 14:16:22 Date of Last Pap Smear completed Marly Disla [facility] 10/07/2024 14:15:10 Imaging Results None recorded. Procedure Notes None recorded. Medical Equipment None Reported. Allergies Allergen ID Allergen Name Allergen Category Reaction Reaction Severity Criticality Documentation Date Start Date Code Code System Note Provider Name and Address Organization Details Recorded Time 36172 kiwi fruit extract food Not available Not available Not available 09/20/2024 14113 01 RxNorm Marly roman, [facility] 10:07:59 Medications Name Sig Start Date Stop Date Status Note LastModified by Organization Details LastModified Time Macrobid 100 mg capsule Take 1 capsule every 12 hours by oral route. 2024 active Not Available Not Available Not Avai lable ergocalcifer ol (vitamin D2) 1,250 mcg (50,000 unit) capsule TAKE 1 CAPSULE BY MOUTH ONCE A WEEK 09/20 completed Not Available Not Available Not Available Vitals Date Recorded Body height Body mass index (BMI) Body weight Systolic blood pressure Diastolic blood pressure Systolic blood pressure Diastolic blood pressure Provider Name and Address Organization Details Last Updated DateTime 162.56 cm 28 kg/m2 04610.5 6 g 163 mm[Hg] 96 mm[Hg] 154 mm[Hg] 95 mm[Hg] Tamara Wesley [facility] 10:56:29 Social History Question Answer Notes LastModified by Organizat ion Details LastModified Time Tobacco Smoking Status Never Smoker Marly roman, [facility] 09/20/2024 10:18:50 Do You Have An Advance Directive? No [email or web address] Information n ot available 10/05/2024 What Is Your Level Of Alcohol Consumption? None [email or web address] Information not available 09/20/2024 If You Are , What Was Your Level Of Alcohol Consumption Prior To ? Occasional [email or web address] Information not available 09/20/2024 Are You Blind Or Do You Have Difficulty Seeing? No [email or web address] Information n ot available 09/20/2024 What Is Your Level Of Caffeine Consumption? Moderate Information not available 09/20/2024 How Much Tobacco Do You Chew? None [email or web address] Information not available 10/05/2024 In The 14 Days Before Symptom Onset, Have You Had Close Contact With A Laboratory-confirm ed COVID-19 While That Case Was Ill? No [email or web address] Information n ot available 09/20/2024 In The 14 Days Before Symptom Onset, Have You Had Close Contact With A Person Who Is Under Investigation For COVID-19 While That Person Was Ill? No Information not available 09/20/2024 Have You Been To An Area Known To Be High Risk For COVID-19? No Information not available 09/20/2024 Are You Deaf Or Do You Have Serious Difficulty Hearing? No [email or web address] Information not available 09/20/2024 What Type Of Diet Are You Following? REGULAR [email or web address] Information n ot available 09/20/2024 What Is The Highest Grade Or Level Of School You Have Completed Or The Highest Degree You Have Received? KB60448-7 [email or web address] Information not available 10/05/2024 What Is Your Occupation? Development [email or web address] Information not available 10/05/2024 Do You Use Protection During Sex? No [email or web address] Information not available 10/05/2024 Do You Use Your Seat Belt Or Car Seat Routinely? Yes [email or web address] Information not available 09/20/2024 Do You Have Smoke And Carbon Monoxide Detectors In Your Home? Yes Information not available 09/20/2024 How Much Tobacco Do You Smoke? No [email or web address] Information not available 10/05/2024 Do You Feel Stressed (tense, Restless, Nervous, Or Anxious, Or Unable To Sleep At Night)? [id number] [email or web address] Information not available 09/20/2024 Do You Use Any Illicit Or Recreational Drugs? No [email or web address] Information not available 09/20/2024 Do You Use Sunscreen Routinely? Yes [email or web address] Information not available 09/20/2024 Has Tobacco Cessation Counseling Been Provided? No urnsogph19 Information not available 09/20/2024 Have You Used IV Drugs? No [email or web address] Information not available 10/05/2024 Do You Or Have You Ever Used Any Other Forms Of Tobacco Or Nicotine? No [email or web address] Information not available 09/20/2024 Sex: Unknown Functional Status Question Answer Note LastModified by Organizat ion Details LastModified Time Do you have difficulty walking or climbing stairs? No [email or web address] Information not available 09/20/2024 Are you able to walk? YESWOREST [email or web address] Information not available 09/20/2024 Are you able to care for yourself? Yes [email or web address] Information not available 09/20/2024 Do you have difficulty dressing or bathing? No [email or web address] Information not available 09/20/2024 What is your exercise level? Moderate [email or web address] Information not available 09/20/2024 Mental Status None recorded. Family History Relationship Description Onset Age of this Age Resolved Age Notes LastModified by Organization Details LastModified Time Father Diabetes mellitus [email or web address] Not available 09/20 09:26:30 Father Coronary arterioscler osis Not available 2024 10:29:26 Father Anemia [email or web address] Not available 10/07/2024 14:09:42 Father Heart disease [email or web address] Not available 10/07 14:09:56 Mother Diabetes mellitus [email or web address] Not available 09/20 09:26:30 Mother Coronary arterioscler osis Not available 2024 10:29:26 Mother Hypertensive disorder [email or web address] Not available 09/20 09:26:55 Mother Anemia [email or web address] Not available 10/07/2024 14:09:42 Medical History Condition [...] Last Pap Smear 11/30/2023 Current Control Method Breastfeedi ng/CARRILLO LMP Definite Obstetrics History GPAL:G 1 P 1 0 0 1 Type Value Full Term 1 Living 1 Total 1 Past Encounters Encounter ID Performer Location Encounter Start Date Encounter Closed Date Diagnosis/Indication Diagnosis SNOMED-CT Code Diagnosis ICD10 Code [facility] [id number] [facility] [address] [address] 11/16/2024 10:02:54 11/16/2024 11:57:35 Gestation period, 36 weeks 52337319 Z3A.36 [id number] [facility] [address] [address] 11/23/2024 10:06:05 11/23/2024 11:03:06 Gestation period, 37 weeks 90737443 Z3A.37 [id number] [facility] [address] [address] 11/30/2024 10:01:14 11/30/2024 10:24:08 Gestation period, 38 weeks 33502974 Z3A.38 [id number] [facility] [address],[place] [address] 12/07/2024 10:03:56 12/07/2024 10:46:51 Gestation period, 39 weeks 24500699 Z3A.39 [id number] Haleigh Garland CNM [address] [address] 12/11/2024 09:36:39 12/11/2024 10:27:31 Gestation period, 39 weeks 12459792 Z3A.39 [id number] Iron Patel MD [place] [address] [address] 12/17/2024 10:02:17 12/17/2024 12:04:03 Urinary tract infectious disease 09873797 N39.0 Pre-eclampsia 655455875 O14.95 Acute urin jakub tract infection 094733152 N39.0 this patient is a 34-year-ol d female who presents for follow-up on elevated blood pressures. She was diagnosed with preeclamps ia during the . Her blood pressure elevated today. They are not severe range. We agreed to observe at home. We agreed not to treat. She also has abdominal pain. It is right upper quadrant pain. It is tender to deep palpation. To obtain abdominal ultrasound . She also has urinary tract infection. We agreed to treat urinary tract infection. She was given a prescripti on for medication . She is given precaution s and instructio n. We we talked about risks, benefits, and alternativ es. She will follow-up as needed. Spent over 30 minutes on her care in total. Health Concerns Section Related Observation LastModified by Organization Detai ls LastModified Time None Recorded Concern Status LastModified by Organization Details LastModified Time None Recorded Payers Encounter Date Sequence Insurance Name Policy Number Policy Danielle Covered Member ID Danielle Member ID Guarantor Name 12/17/2024 1 [employer] (POS) [id number] Jennifer Croft [id number] Jennifer Croft Notes Date Note Type Note Provider Name and Address Organization Details Recorded Time 12/17/2024 text/html this patient is a 34-year-old female who presents for follow-up on elevated blood pressures. She was diagnosed with preeclampsia during the . Her blood pressure elevated today. They are not severe range. We agreed to observe at home. We agreed not to treat. She also has abdominal pain. It is right upper quadrant pain. It is tender to deep palpation. To obtain abdominal ultrasound. She also has urinary tract infection. We agreed to treat urinary tract infection. She was given a prescription for medication. She is given precautions and instruction. We we talked about risks, benefits, and alternatives. She will follow-up as needed. Spent over 30 minutes on her care in total. Iron Patel MD [address], [place], [address], [place] [facility] 12/17/2024 12:02:20 OBGyn Episode Ob Episode Information Episode Created Date Number of Fetuses Patient Bloodtype Patient rh Status Prepregnancy Weight lbs Domestic Partner Domestic Partner Phone Father Name Speech Teacher Status 09/20/19 25 1 B Positive 127 ratna allen CLOSED Fetus Data First Name Last Name Admitted to NICU Weight (g) Sex Living Outcome Pediatric Complications Fetus ID Race Codes Race Delivery Type false 2834.95 F Full Term [id number] Vaginal Delivery Problems Problem Notes ok to do to gCT with juice, discussed not as diagnostic as glucola, pt to bring it in, declines h/h, hivprefers low intervention, wants to keep placenta Problem Name Start Date End Date Resolution Snomed Code Not e Anxiety 80781295 given rx f or lexapro and hydroxyzine by nelson ZEPEDA, has not filled yet growth restriction 22412206 has f/u chet deshpande , offered here sooner6% efw Be Calculation Initial [...] Sound Latest Days Gestation 07/26/20 24 19 [email or web address] 09/20/2024 12/14/19 25 0 Pre-chacho Flowsheet Flowsheet Date 09/20/2024 Raza Score Blood Edema Fundus Height Fundus Units Glucose Ketones Leukocytes Nitrite Labor Signs Protein Cervic Dilation Cervic Effacement Cervic Station neg none 24 cm none trace Type Weight in lbs Pre/Post Dialysis Refused Weight 157.836080054046 BP Diastolic BP Location Tested BP Systolic [...] Type Weight in lbs Pre/Post Dialysis Refused 161.882898855824 BP Diastolic BP Location Tested BP Systolic BP Type 73 130 Fetus Heart Rate Present Fetus Movement A Yes Comments Patient is having some disch arge. 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 has appt at [facility] today for us, reviewed kick counts f/u 2 weeks Flowsheet Date 10/19/2024 Raza Score Blood Edema Fundus Height Fundus Units Glucose Ketones Leukocytes Nitrite Labor Signs Protein Cervic Dilation Cervic Effacement Cervic Station neg none Type Weight in lbs Pre/Post Dialysis Refused 163.018318665768 BP Diastolic BP Location Tested BP Systolic [...] Type Weight in lbs Pre/Post Dialysis Refused 167.451616852263 BP Diastolic BP Location Tested BP Systolic [...] Weight in lbs Pre/Post Dialysis Refused Weight 167.295554149455 BP Diastolic BP Location Tested BP Systolic BP Type 82 135 Fetus Heart Rate Present Fetus Movement Comments Flowsheet Date 11/16/2024 Raza Score Blood Edema Fundus Height Fundus Units Glucose Ketones Leukocytes Nitrite Labor Signs Protein Cervic Dilation Cervic Effacement Cervic Station none Type Weight in lbs Pre/Post Dialysis Refused 172.000342100625 BP Diastolic BP Location Tested BP Systolic [...] Weight in lbs Pre/Post Dialysis Refused Weight 174.009087079786 BP Diastolic BP Location Tested BP Systolic [...] Weight in lbs Pre/Post Dialysis Refused Weight 178.336686095755 BP Diastolic BP Location Tested BP Systolic [...] Weight in lbs Pre/Post Dialysis Refused Weight 178.689301354743 BP Diastolic BP Location Tested BP Systolic [...] Weight in lbs Pre/Post Dialysis Refused Weight 175.603961909723 BP Diastolic BP Location Tested BP Systolic BP Type 94 159 Fetus Heart Rate Present Fetus Movement A Yes Comments Patient is having some disch arge and swelling. Patient is having alot of stress and anxiety. pt father is at the end of life, +FM, denies headache visual changes, epigastric pain, to for labs Flowsheet Date 12/17/2024 Raza Score Blood Edema Fundus Height Fundus Units Glucose Ketones Leukocytes Nitrite Labor Signs Protein Cervic Dilation Cervic Effacement Cervic Station Type Weight in lbs Pre/Post Dialysis Refused Weight 163.858777643126 BP Diastolic BP Location Tested BP Systolic BP Type 96 L arm 163 sitting 95 L arm 154 sitting Fetus Heart Rate Present Fetus Movement Comments Menstrual History Last Menstrual Date Menses Monthly On Bcp Conception Prior Menses Frequency Hcg Plus Date Menarche Onset Age 0703/08/2024 Delivery Information Delivery Date Delivery Type Labor Anesthesia Weeks Gestation Incision Type Labor Labor Length Hrs Delivered By Post Complications Tubal Sterilization Discharge Date Comments 5 39.5 false Hypertension false Discharge Information Feeding Method Contraceptive Method Maternal HG B and HCT Levels
--- OUTSIDE RECORDS SUMMARY | 2024-12-17 13:12 | XMS_ITS | Encounter Summary ---
Author Organization [facility] Address [address] [place] [address] Care Team Providers Care Pulmonologist Intensivist Name Role Phone Tanvi Hopkins MD Primary Care Provider [phone] Encounter Details Date Type Department Care Team (Late st Contact Info) Description 11/28/2020 Bump Technologiest Message Enc [facility] [address] [place] [id number] Corrine Pastor DO [address] [place] [address] RE: Follow Up/Update Social History Tobacco Use [...] on filedocumented in this encounter Care Teams Pulmonologist Intensivist Relationship Specialty Start Date End Date Tanvi Hopkins MD [facility] [address] [address] PCP - General INTERNAL MEDICINE 08/12/23 documented as of this encounter
--- OUTSIDE RECORDS SUMMARY | 2024-12-17 13:12 | XMS_ITS | Clinical Summary ---
Author Organization [facility] Address [address] [place] [address] Care Team Providers Care [employer] Age Program Teacher Name Role Phone Tanvi Hopkins MD Primary Care Provider [phone] Allergies Active Allergy Reactions Criticality Noted Date Comments Kiwi Fruit Swelling 05/25/2018 Medications No known medications Active Problems Problem Noted Date Diagnosed Date Episodic tension-type headache, not intractable 12/26/2020 Overview (08/21/2021): Last Assessment & Plan: Patient has history of muscle contraction type headaches and was seen last at [facility] in 2017. She had a recurrence [...] 11/21/202009/2021 Annual physical exam 03/20/2019 021 Immunizations Immunization Administration Dates Next Due [id number] (Pediarix) 03/25/1992,03/06,01/14/1992,1991,1991,1991 Dtap (Generic) 05/02/2006,04/15/1997 Dtp 05/02/2006,04/15/1997 Dtp (Generic) 05/02/2006,04/15/1997 HPV GARDASIL 9-VALENT 03/06/2009,09/13/2008 Hepatitis A 05/02/2006 Hepatitis A (Generic) 05/02/2006,05/02/2006 Hepatitis B 05/14/1993, 3,11/08/1992,1992,10/06/1992,10/06/1992 Hepatitis B (Generic: Adult) 05/14/1993,11/08/18 93,10/06/1992 Hib 05/14/1993 Hib (Generic) 05/14/1993,05/14/1993 Influenza (Generic) 07/27/2023, 9,06/20/2019,2012 Influenza Adult (Generic) 07/07/2021,,05/23/2020,2019,06/20/2019,07/01/2016,07/01/2016,1 MMR (Generic) 04/15/1997,05/14/1993 MODERNA COVID-19 BIVALENT (1 [...] Comments Blood Pressure 137/82 08/12/2023 7:58 AM FIRE EXTINGUISHER MECHANIC Pulse 74 08/12/2023 7:58 AM [employer] EXTINGUISHER MECHANIC Temperature 36.3 C (97.3 F) 08/12/2023 7:58 AM FI[employer] EXTINGUISHER MECHANIC Respiratory Rate 14 08/12/2023 7:58 AM FI[employer] EXTINGUISHER MECHANIC Oxygen Saturation 100% 08/12/2023 7:58 AM FIRE EXTINGUISHER MECHANIC Inhaled Oxygen Concentration - - Weight 61.1 kg (134 lb 12.8 oz) 08/12/2023 7:58 AM FI[employer] EXTINGUISHER MECHANIC Height 162.6 cm (5' 4 ) 08/12/2023 7:58 AM FIRE EXTINGUISHER MECHANIC Body Mass Index 23.14 08/12/2023 7:58 AM FIRE EXTINGUISHER MECHANIC Plan of Treatment Health Maintenance Due Date [...] Physical 08/12/2024 08/12/2023, 11/03, 03/20/2019 PHQ-2 (Physician [place]) 09/05/2024 08/12/2023 DTaP, Tdap and Td [...] 5 Years) and At-Risk Patients (6 to 49 Years) Aged Out No longer eligible based on patient's age to complete this topic RSV Immunizations Under 20 Months Aged Out No longer eligible based on patient's age to complete this topic Procedures Procedure Name Priority Date/Time Associated Diagnosis Comments HEPATITIS C ANTIBODY W/RFX TO HCV RNA Routine 09/30/2023 9:30 AM FIRE EXTINGUISHER MECHANIC OUTSIDE CYTOPATH CERV/VAG INTERPRET (PAP) (SCAN ORDER) 11/24/2020 HPV MRNA E6/E7 Routine 03/20/2019 4:20 PM CDT from Last 3 Months or Most Recently Relevant to Health Maintenance Results * HEPATITIS C ANTIBODY W/RFX TO HCV RNA (09/30/2023 9:30 AM FIRE EXTINGUISHER MECHANIC) HEPATITIS C AB NON-REACT MARLEE NON-REACT MARLEE [facility] Comment: HCV antibody was non-reactive. There is no laboratory evidence of HCV infection. In most cases, no further action is required. However, if recent HCV exposure is suspected, a test for HCV RNA (test code 48211) is suggested. For additional information please refer to http://education.[employer]!/faq/LSN85b9 (This link is being provided for informational/ educational purposes only.) 09/30/2023 9:30 AM FIRE EXTINGUISHER MECHANIC 09/30/2023 9:32 AM FIRE EXTINGUISHER MECHANIC Narrative [facility] - 10/01/2023 7:26 AM FIRE EXTINGUISHER MECHANIC FASTING:YES PATIENT UNABLE TO VOID; ADVISED TO RETURN FOR COLLECTION. FASTING: YES Resulting Agency Comment Performing Organization Information: Site ID: [id number] Name: [facility] Address: [address] [id number] Director: Albertina Gunn MD Tanvi Hopkins MD LABORATORY Final Result [facility] [place] [id number] [address] [address], [place] * PAP SMEAR (SCAN ORDER) (11/24/2020) 11/24/2020 [facility] Scanned SCANNING Final Resu lt * HPV MRNA E6/E7 (03/20/2019 4:20 PM CDT) HPV MRNA E6/E7 Not Detected NOT DETECTED 03/24/2019 11:18 AM CDT [facility] Comment: This test was performed using the APTIMA(R) HPV Assay ([employer] This assay detects E6/E7 viral messenger RNA (mRNA) from 14 high-risk HPV types (16,18,31,33,35,39,45,51, 52,56,58,59,66,68). For additional information please refer to: http://education.[employer]/faq/HGC192f4 (This link is being provided for informational/ educational purposes only.) The analytical performance characteristics of this assay have been determined by [employer] [place], [place]. The modifications have not been cleared or approved by the FDA. This assay has been validated pursuant to the CLIA regulations and is used for clinical purposes. Test Performed by [facility], [address], [address] [place], [place] Orlando Oates M.D., Ph.D., Director of Laboratories , CLIA [id number] 03/20/2019 4:20 PM CDT us Corrien Pastor DO PATHOLOGY/CYTOLOGY ORDERABLES Fi nal Result [facility] [address] [place] [address], [place] [phone] from Last 3 Months or Most Recently Relevant to Health Maintenance Insurance [employer] Care Teams School Age Program Teacher Relationship Specialty Start Date End Date Tanvi Hopkins MD [address] [facility] [address] [place] [id number] PCP - General INTERNAL MEDICINE 08/12/23
== END 2024-12-17 11:34 | disposition home or self-care (01) ==
PROVIDERS: PCP Internal Medicine; Visit Provider Obstetrics & Gynecology
DX: R10.9 Unspecified abdominal pain (principal)
CPT/HCPCS: 76700